=== PATIENT | female | born 1955 | race Caucasian/White ===

== ENCOUNTER 2018-01-12 14:11 | Outpatient (CLI) | payer OTHER ==
--- NOTE | 2018-01-16 15:10 | MMO ---
BILATERAL SCREENING MAMMOGRAM: History: 62-year-old female for screening mammography. Comparison: 06-21-13 FINDINGS: Bilateral MLO and CC views of the breasts shows scattered fibroglandular breast tissue. Benign appear ing calcifications are seen in both breasts. There is no evidence of suspicious mass, suspicious clus ter of microcalcifications or area of architectural distortion. This study is interpreted with the assistance of computer aided detection. IMPRESSION: BIRADS category 2 - benign findings. Annual screening mammography is recommended. POS: [facility]
== END 2018-01-12 14:12 | disposition home or self-care (01) ==
LOC: SCSMAMMO 14:11
PROVIDERS: ATTEND Specialist
DX: Z12.31 Encounter for screening mammogram for malignant neoplasm of breast (principal)
CPT/HCPCS: 77067

== ENCOUNTER 2018-05-15 16:08 | Inpatient (IN) | payer SELFPAY ==
[2018-05-15 16:37] VITALS: BMI 30.3
[2018-05-15] MEDS: cloNIDine 0.1 MG TAB PO SCH ×4 (17:57→22:38)
[2018-05-15 18:44] LABS: #Basophils 0.1 thou/uL (0.0-0.2); #Eosinphils 0.1 thou/uL (0.0-0.7); #Lymphocytes 3.5 thou/uL (1.20-3.40); #Monocytes 0.4 thou/uL (0.11-0.59); #Neutrophils 5.1 thou/uL (1.40-6.50); %Basophils 1.6 % (0.0-1.0); %Eosinophils 0.8 % (0.0-10.0); %Lymphocytes 37.7 % (21.0-51.0); %Monocytes 4.1 % (0.0-10.0); %Neutrophils 55.8 % (42.0-75.0); Hemoglobin 13.4 g/dL (12.0-16.0); Mean Corpuscular HGB CONC 32.9 g/dL (32.0-36.0); Mean Corpuscular Hemoglobin 33.5 pg (27.0-31.0); Mean Platelet Volume 6.6 fL (7.4-10.4); Platelet Count 386 thou/uL (130-400); RBC Distribution Width 11.7 % (11.5-14.5); White Blood Cell (WBC) Count 9.2 thou/uL (4.8-10.8)
[2018-05-15 19:07] LABS: ALT (SGPT) 10 U/L (8-55); AST (SGOT) 9 U/L (5-34); Albumin 4.1 g/dL (3.4-4.8); Alkaline Phosphatase 64 U/L (40-150); Anion Gap 12 mmol/L (10-20); BUN (Urea Nitrogen) 6 mg/dL (9.8-20.1); Bilirubin, Total 0.4 mg/dL (0.2-1.2); CRP (Inflammatory) Less than 0.50 mg/dL (= or < 0.5); Calc. Creatinine Clearance 109 mL/min (70-130); Calcium 10.4 mg/dL (7.8-10.44); Carbon Dioxide 24 mmol/L (23-31); Chloride 106 mmol/L (98-107); Estimated GFR-MDRD 83; Globulin 3.5 g/dL (2.4-3.5); Glucose 95 mg/dL (80-115); Potassium 3.4 mmol/L (3.5-5.1); Protein, Total 7.6 g/dL (6.0-8.3); Sodium 139 mmol/L (136-145)
[2018-05-15] MEDS: Nicotine 14 MG PATCH TOP SCH (20:29)
--- NOTE | 2018-05-15 21:12 | RAD ---
TWO VIEWS CHEST: 05/15/18 HISTORY: New onset atrial fibrillation. PA and lateral views of the chest demonstrate ectasia and calcification of the aorta. osteoporosis of the thoracic spine is seen. There is no evidence of acute intrathoracic abnormalities. Left mid lung and left lung base scarring is seen. IMPRESSION: Areas of left lung scar without evidence of acute intrathoracic abnormality seen. No evidence of effu sions seen. POS: [facility]
[2018-05-16] MEDS: cloNIDine 0.1 MG TAB PO SCH ×9 (01:27→19:47)
[2018-05-16 02:15] LABS: Bilirubin Negative (Negative); Blood, Urine Trace (Negative); Clarity CLOUDY (Clear); Glucose, Urine (Dipstick) Negative (Negative); Leukocyte Moderate (Negative); Nitrite Negative (Negative); Protein, Urine (Dipstick) Negative (Neg-Trace); Specific Gravity, Urine 1.021 (1.002-1.036); pH, Urine 6.5 (5.0-9.0)
[2018-05-16 02:19] LABS: Bacteria/HPF Rare-Few HPF (None Seen); Pathc Cast-AUWi Flag 2.03 (0-2.49); Squamous Epithelial 0-3 HPF (0-3); WBC/HPF 21-50 HPF (0-3)
[2018-05-16 03:04] LABS: Hyaline Casts/LPF 0-3 HYALINE CAST LPF (0-3 Hyaline)
--- NOTE | 2018-05-16 04:09 | HP ---
DATE ON ADMISSION: 05/15/2018 CHIEF COMPLAINT ON ADMISSION: Symptomatic cardiac arrhythmia. HISTORY OF PRESENT ILLNESS: The patient is a 62-year-old female who states for the last 3 weeks she has been getting increasingly dizzy, off balance, barely able to walk straight. At time, she has had double vision. She has felt like she was going to fall multiple times, but has not. She came to the office for evaluation today and it was noted that her heart was very irregular. EKG confirmed her sinus arrhythmia, consistent with supraventricular complexes. The patient has not seen a fairing worker multiple years. Denies current chest pain or shortness of breath at this time. No nausea or vomiting. Blood pressure has been very elevated as well over 200 systolic at times and then as time went by it gradually went down to 160/95. PAST MEDICAL HISTORY: Significant for chronic low back pain, generalized anxiety disorder, depression, vitamin D deficiency, history of ADD, history of gout, hyperlipidemia, tobacco abuse, osteoarthritis of her knees and spondylosis in her low back. PAST SURGICAL HISTORY: Left knee repair and cholecystectomy. She has had 2 vaginal births, unremarkable. FAMILY HISTORY: Not Helpful because she is adopted. SOCIAL HISTORY: She is , retired rn school. Drinks occasionally. Still continues to smoke and has had a [id number]-[id number] history of smoking. ALLERGIES: Sulfur, it makes her tongue to swell. ADMISSION MEDICATIONS: Rosuvastatin 20 mg daily, allopurinol 100 mg daily, vitamin D 10,000 IUs daily, gabapentin 600 mg t.i.d., Zoloft 100 mg b.i.d., Tylenol [id number]. REVIEW OF SYSTEMS: General: Significant for general weakness, unsteadiness. Denies fever or chills. HEENT: Denies headache. There has been some blurred vision. She denies discharge from ears, nose, or throat, no lesions there. Chest: Admits to some dyspnea, but no cough. Cardiac: Denies palpitations or chest pain. Abdomen: Denies nausea, vomiting, diarrhea, or pain. Genitourinary: Denies dysuria or blood in urine or stool. Extremities: Joint pain in her lower extremities, but no other muscular tenderness or pain. Skin: No new rashes or lesions. Neurologic: She is significant for anxiety. This chronic depression was under control, but denies any new paresthesias or areas of anesthesia. PHYSICAL EXAMINATION: VITAL SIGNS: On admission, temperature 97.9, pulse 86, respirations 18, O2 saturation 98% on room air, blood pressure 188/115, later elevated to 195/107. GENERAL: This is an anxious female, alert, oriented, cooperative. HEENT: Normocephalic and atraumatic. Pupils are equal, round, and reactive to light. Extraocular muscles are intact. TMs, nares, pharynx are clear. NECK: Supple, trachea midline. CHEST: Diminished breath sounds in the right middle lobe. HEART: Irregular rate, irregular rhythm. ABDOMEN: Soft without hepatosplenomegaly. GENITOURINARY/BREAST: Deferred. EXTREMITIES: Without clubbing, cyanosis, or edema. SKIN: Without acute rashes or lesions. NEUROLOGIC: Cranial nerves are intact. Gait and cerebellar function are significant for ataxia and unsteadiness. Sensory exam is grossly intact. Mental status significant for anxiety. SKIN: No new rashes or lesions. LABORATORY DATA: Lab work thus far shows WBC is 9.2, hemoglobin 13.4, hematocrit 40.7 with platelets of 386,000. Sed rate at 22. Sodium 139, potassium 3.4, chloride 106, CO2 of 24, BUN 6, creatinine 0.71 with a GFR 83, glucose 95. Liver functions normal. C-reactive protein less than 0.5. TSH 1.0224. IMAGING: Echocardiogram is pending. Chest x-ray shows no acute infiltrates or cardiomegaly. ASSESSMENT: 1. Symptomatic cardiac arrhythmia with ataxia. 2. Long history of tobacco abuse. 3. Multiple cardiac risk factors including hypertension poorly controlled and dyslipidemia. 4. Hypertension - uncontrolled. 5. Generalized anxiety disorder. PLAN: Will be to control the blood pressure, continue on telemetry, get an echocardiogram, a cardiac consult, and serially reevaluate her. I suspect that her hypertension is contributing to the arrhythmias. NAVIN
[2018-05-16 05:07] LABS: Cardiac Risk 3.4 (Less than 4.5)
[2018-05-16] MEDS: Gabapentin 300 MG CAP PO SCH (11:18)
[2018-05-16] MEDS ORDERED: cloNIDine 0.1 MG TAB PO SCH (12:30)
[2018-05-16] MEDS: cefTRIAXone\\ROCEPHIN 1 GM in Sodium Chloride 0.9% 100 ML IVPB SCH (13:09)
[2018-05-16] MEDS: Nicotine 14 MG PATCH TOP SCH (19:47)
[2018-05-17] MEDS: cloNIDine 0.1 MG TAB PO SCH (08:31)
[2018-05-17] MEDS: Gabapentin 300 MG CAP PO SCH (08:31)
[2018-05-17] MEDS: cefTRIAXone\\ROCEPHIN 1 GM in Sodium Chloride 0.9% 100 ML IVPB SCH (12:28)
[2018-05-17 15:55] VITALS: BP 133/89; TEMP 97.4
--- NOTE | 2018-05-17 19:21 | CON ---
DATE OF CONSULTATION: 05/17/2018 CARDIOLOGY CONSULTATION REASON FOR CONSULTATION: PACs. HISTORY OF PRESENT ILLNESS: Mrs. Phoenix is a very pleasant 62-year-old white female who comes to [facility] for dizziness. She has noted last 3 weeks she has increased dizziness and issue with urbano pinae, unable to walk in a straight line and double vision when she turns her head. She has fallen se veral times because of this. She went to see her primary care Dr. Sotelo who admitted her to the [facility] for further evaluation. EKG done in the office showed sinus rhythm with PACs. Cardiology is be ing consulted for evaluation of all this. She denies any chest pain, tightness, pressure, no shortne ss of breath. PAST MEDICAL HISTORY: 1. Chronic low back pain. 2. Generalized anxiety disorder. 3. Depression. 4. Vitamin D deficiency. 5. History of ADD. 6. Gout. 7. Hyperlipidemia. 8. Tobacco abuse. 9. Osteoarthritis of her knees. 10. Spondylosis of her low back. PAST SURGICAL HISTORY: 1. Left knee repair. 2. Cholecystectomy. FAMILY HISTORY: She is adopted. 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 Occasional alcohol use, smokes a pack a day 46 pack year sm oking history, continues to do so. OUTPATIENT MEDICATIONS: 1. Rosuvastatin 20 mg a day. 2. Allopurinol 100 mg a day. 3. Vitamin D. 4. Gabapentin. 5. Zoloft. 6. Tylenol over the counter p.r.n. ALLERGIES: SULFA makes her tongue well. REVIEW OF SYSTEMS: A 12-point review of systems was done and is all negative unless stated in the hi story of present illness. PHYSICAL EXAMINATION: VITAL SIGNS: Temperature 97.4, pulse 85, respiration rate 20, satting 94% on room air, blood pressur e 133/89. GENERAL: Awake, alert, oriented x3, in no distress. HEENT: Normocephalic. NECK: Supple. LUNGS: Clear. CARDIOVASCULAR: S1, S2, no S3, S4, no murmurs. ABDOMEN: Soft, positive bowel sounds. EXTREMITIES: No edema. SKIN: Warm and dry. LABORATORY WORK: Reviewed. CBC, chemistries are pretty much unremarkable. Her potassium was 3.4 wh ich is mildly reduced. TSH was normal. LDL 51, HDL of 33. UA showed trace blood, moderate leukocyt e esterase, 21-50 white cells. IMAGING DATA: Echocardiogram showed LV function normal at 60%-65%. Grade I/III diastolic dysfunctio n and obstruction, mild MR, TR, and a small pericardial effusion with no tamponade physiology. Chest x-ray was reviewed. Telemetry was reviewed. ASSESSMENT AND PLAN: 1. PACs: She had PACs on the regional EKG before admission. She has had rare PACs here during her monitoring. She is asymptomatic from the PACs. I do think that her dizziness and double vision came from her PACs. 2. Pericardial effusion. She will need to follow up with this. She is not in tamponade and the flu id is very minimal. She will need a followup echocardiogram in 2-4 weeks after discharge. 3. Dizziness: Currently not dizzy. Would want to rule out any cerebral issues. I do not see any c ardiac issues causing her to be dizzy at this time. She is not orthostatic. Thanks for allowing me to participate in the care of your patient. We will follow.
--- NOTE | 2018-05-19 10:30 | EKG ---
Test Reason : Blood Pressure : / mmHG Vent. Rate : 076 BPM Atrial Rate : 076 BPM P-R Int : 184 ms QRS Dur : 086 ms QT Int : 392 ms P-R-T Axes : 064 068 072 degrees QTc Int : 441 ms Normal sinus rhythm Normal ECG Confirmed by DR. Willian MENDOZA ([id number]) on 05/19/2018 10:29:23 AM Referred By: Alice GILES Confirmed By:DR. Willian MENDOZA
== END 2018-05-17 17:32 | disposition home or self-care (01) | DRG 309 ==
LOC: 2SE 16:08
PROVIDERS: ADMIT Specialist; ATTEND Specialist
DX: I49.9 Cardiac arrhythmia, unspecified (principal); I31.3 Pericardial effusion (noninflammatory); N39.0 Urinary tract infection, site not specified; G89.29 Other chronic pain; F32.9 Major depressive disorder, single episode, unspecified; E55.9 Vitamin D deficiency, unspecified; F98.8 Other specified behavioral and emotional disorders with onset usually occurring in childhood and adolescence; M10.9 Gout, unspecified; E78.5 Hyperlipidemia, unspecified; F17.210 Nicotine dependence, cigarettes, uncomplicated; M17.0 Bilateral primary osteoarthritis of knee; M47.9 Spondylosis, unspecified; R27.0 Ataxia, unspecified; I10 Essential (primary) hypertension; F41.1 Generalized anxiety disorder; I49.1 Atrial premature depolarization
CPT/HCPCS: 36415; 71046; 80053; 80061; 81001; 84443; 85025; 85652; 86140; 90471; 90732; 93005; 93010; 93306; G0009; J0696; J7050

== ENCOUNTER 2018-05-25 11:55 | Emergency (ER) | payer SELFPAY ==
--- NOTE | 2018-05-25 13:49 | RAD ---
RADIOGRAPH CHEST 1 VIEW: Date: 07/25/2017. Time: 1:35 p.m. HISTORY: A 62-year-old female with hypertension and generalized weakness. COMPARISON: 05/15/2018. FINDINGS: Again noted are the plate-like densities representing pulmonary scars at the left mid lung field and left base. There is a faint, ill-defined, approximately 1.5 cm nodular density overlying the right u pper lobe. No consolidation, pulmonary edema, or pneumothorax. Lateral costophrenic angles are bunny p. No major interval change. IMPRESSION: 1. right upper lobe pulmonary nodule. 2. Recommend chest CT for further evaluation. 3. No acute findings. JOHNNY [] POS: [facility]
[2018-05-25 13:52] LABS: #Basophils 0.1 thou/uL (0.0-0.2); #Eosinphils 0.1 thou/uL (0.0-0.7); #Lymphocytes 2.9 thou/uL (1.20-3.40); #Monocytes 0.8 thou/uL (0.11-0.59); #Neutrophils 4.4 thou/uL (1.40-6.50); %Basophils 1.3 % (0.0-1.0); %Eosinophils 1.5 % (0.0-10.0); %Lymphocytes 35.4 % (21.0-51.0); %Monocytes 9.2 % (0.0-10.0); %Neutrophils 52.6 % (42.0-75.0); Hemoglobin 13.5 g/dL (12.0-16.0); Mean Corpuscular HGB CONC 33.8 g/dL (32.0-36.0); Mean Corpuscular Hemoglobin 33.4 pg (27.0-31.0); Mean Platelet Volume 6.9 fL (7.4-10.4); Platelet Count 360 thou/uL (130-400); RBC Distribution Width 11.4 % (11.5-14.5); Red Blood Cell (RBC) Count 4.04 mill/uL (4.20-5.40); White Blood Cell (WBC) Count 8.3 thou/uL (4.8-10.8)
[2018-05-25 14:05] LABS: ALT (SGPT) 10 U/L (8-55); AST (SGOT) 10 U/L (5-34); Albumin 3.9 g/dL (3.4-4.8); Alkaline Phosphatase 69 U/L (40-150); Anion Gap 14 mmol/L (10-20); BUN (Urea Nitrogen) 4 mg/dL (9.8-20.1); Bilirubin, Total 0.4 mg/dL (0.2-1.2); Calc. Creatinine Clearance 0 mL/min (70-130); Carbon Dioxide 23 mmol/L (23-31); Chloride 108 mmol/L (98-107); Estimated GFR-MDRD 76; Globulin 3.6 g/dL (2.4-3.5); Glucose 100 mg/dL (80-115); Potassium 3.5 mmol/L (3.5-5.1); Protein, Total 7.5 g/dL (6.0-8.3); Sodium 141 mmol/L (136-145)
[2018-05-25 14:09] LABS: CKMB 0.5 ng/mL (0-6.6); Troponin I Less than 0.010 ng/mL (< 0.028)
== END 2018-05-25 15:49 | disposition home or self-care (01) ==
LOC: ERS 11:55
DX: R53.1 Weakness (principal); F17.210 Nicotine dependence, cigarettes, uncomplicated
CPT/HCPCS: 36415; 71045; 80053; 82553; 83880; 84484; 85025; 93005

== ENCOUNTER 2018-09-30 18:00 | Emergency (ER) | payer SELFPAY ==
[2018-09-30 18:34] LABS: #Basophils 0.1 thou/uL (0.0-0.2); #Eosinphils 0.1 thou/uL (0.0-0.7); #Lymphocytes 4.2 thou/uL (1.20-3.40); #Monocytes 0.7 thou/uL (0.11-0.59); #Neutrophils 6.8 thou/uL (1.40-6.50); %Basophils 0.9 % (0.0-1.0); %Eosinophils 0.4 % (0.0-10.0); %Lymphocytes 35.1 % (21.0-51.0); %Monocytes 6.1 % (0.0-10.0); %Neutrophils 57.6 % (42.0-75.0); Hemoglobin 14.2 g/dL (12.0-16.0); Mean Corpuscular HGB CONC 32.9 g/dL (32.0-36.0); Mean Corpuscular Hemoglobin 33.1 pg (27.0-31.0); Mean Platelet Volume 6.4 fL (7.4-10.4); Platelet Count 481 thou/uL (130-400); RBC Distribution Width 11.3 % (11.5-14.5); Red Blood Cell (RBC) Count 4.29 mill/uL (4.20-5.40); White Blood Cell (WBC) Count 11.8 thou/uL (4.8-10.8)
[2018-09-30] MEDS ORDERED: Ondansetron PF 4 MG/2 ML Vial ONE (18:41)
[2018-09-30 18:55] LABS: ALT (SGPT) 10 U/L (8-55); AST (SGOT) 12 U/L (5-34); Albumin 4.4 g/dL (3.4-4.8); Alkaline Phosphatase 74 U/L (40-150); Anion Gap 13 mmol/L (10-20); BUN (Urea Nitrogen) 9 mg/dL (9.8-20.1); Bilirubin, Total 0.6 mg/dL (0.2-1.2); Calc. Creatinine Clearance 0 mL/min (70-130); Calcium 10.8 mg/dL (7.8-10.44); Carbon Dioxide 23 mmol/L (23-31); Chloride 104 mmol/L (98-107); Estimated GFR-MDRD 52; Globulin 3.8 g/dL (2.4-3.5); Glucose 107 mg/dL (80-115); Lipase 93 U/L (8-78); Potassium 4.1 mmol/L (3.5-5.1); Protein, Total 8.2 g/dL (6.0-8.3); Sodium 136 mmol/L (136-145)
[2018-09-30 20:02] LABS: Bilirubin Negative (Negative); Blood, Urine Trace (Negative); Clarity CLOUDY (Clear); Glucose, Urine (Dipstick) Negative (Negative); Leukocyte Negative (Negative); Nitrite Negative (Negative); Protein, Urine (Dipstick) 100 mg/dL (Neg-Trace); Specific Gravity, Urine 1.008 (1.002-1.036); Urobilinogen 0.2 mg/dL (0.2-1.0)
[2018-09-30 20:03] LABS: Bacteria/HPF Rare-Few HPF (None Seen); Pathc Cast-AUWi Flag 1.22 (0-2.49)
[2018-09-30 20:04] LABS: Hyaline Casts/LPF 0-3 HYALINE CAST LPF (0-3 Hyaline); RBC/HPF 0-3 HPF (0-3)
== END 2018-09-30 20:52 | disposition home or self-care (01) ==
LOC: ERS 18:00
DX: K52.9 Noninfective gastroenteritis and colitis, unspecified (principal); I10 Essential (primary) hypertension; F41.9 Anxiety disorder, unspecified; F32.9 Major depressive disorder, single episode, unspecified; F17.210 Nicotine dependence, cigarettes, uncomplicated; Z79.899 Other long term (current) drug therapy; Z79.82 Long term (current) use of aspirin
CPT/HCPCS: 80053; 81003; 81015; 83690; 85025; 87086; 93005; 94760; 96361; 96372; 96374; J0500; J2405

== ENCOUNTER 2018-10-22 14:01 | Outpatient (CLI) | payer OTHER ==
--- NOTE | 2018-10-22 14:27 | RAD ---
Exam: Chest 2 views HISTORY:Cough and bronchitis Comparison: 05/25/2018 FINDINGS: Lungs: There is nodular density of the right upper to midlung zone. Interstitial prominence of each l liro is present Cardiac silhouette:Mild enlargement of cardiac silhouette. Marked prominence of the right paramediast inal region Pulmonary vessels: Mild engorgement Pleural Spaces: Clear Pneumothorax: None Osseous abnormalities: None of acuity. IMPRESSION: Marked prominence of size of the right paramediastinal region. Underlying mass is the steffen gnosis of exclusion. Nodular density adjacent this finding could relate to metastatic nodularity. Dedicated CT thorax with contrast is recommended.
== END 2018-10-22 14:02 | disposition home or self-care (01) ==
LOC: BICRAD 14:01
PROVIDERS: ATTEND Specialist
DX: J40 Bronchitis, not specified as acute or chronic (principal); J98.4 Other disorders of lung
CPT/HCPCS: 71046

== ENCOUNTER 2018-10-23 13:14 | Inpatient (IN) | payer SELFPAY ==
[~2018-10-23 13:14] MED LIST: Iopamidol 370 76% 100 ML VIAL ONE
[2018-10-23 13:47] LABS: #Basophils 0.1 thou/uL (0.0-0.2); #Lymphocytes 2.1 thou/uL (1.20-3.40); #Monocytes 0.7 thou/uL (0.11-0.59); #Neutrophils 10.9 thou/uL (1.40-6.50); %Basophils 0.8 % (0.0-1.0); %Eosinophils 0.1 % (0.0-10.0); %Monocytes 4.7 % (0.0-10.0); %Neutrophils 79.4 % (42.0-75.0); Hemoglobin 13.5 g/dL (12.0-16.0); Mean Corpuscular HGB CONC 31.7 g/dL (32.0-36.0); Mean Corpuscular Hemoglobin 31.7 pg (27.0-31.0); Mean Platelet Volume 6.2 fL (7.4-10.4); Platelet Count 351 thou/uL (130-400); RBC Distribution Width 12.5 % (11.5-14.5); Red Blood Cell (RBC) Count 4.27 mill/uL (4.20-5.40); White Blood Cell (WBC) Count 13.8 thou/uL (4.8-10.8)
[2018-10-23 14:15] LABS: ALT (SGPT) 7 U/L (8-55); AST (SGOT) 7 U/L (5-34); Albumin 4.2 g/dL (3.4-4.8); Alkaline Phosphatase 67 U/L (40-150); Anion Gap 14 mmol/L (10-20); BUN (Urea Nitrogen) 7 mg/dL (9.8-20.1); Bilirubin, Total 0.3 mg/dL (0.2-1.2); Calc. Creatinine Clearance 0 mL/min (70-130); Calcium 10.9 mg/dL (7.8-10.44); Carbon Dioxide 24 mmol/L (23-31); Chloride 107 mmol/L (98-107); Estimated GFR-MDRD 70; Globulin 3.6 g/dL (2.4-3.5); Glucose 110 mg/dL (80-115); Potassium 3.3 mmol/L (3.5-5.1); Protein, Total 7.8 g/dL (6.0-8.3); Sodium 142 mmol/L (136-145)
--- NOTE | 2018-10-23 15:24 | CT ---
EXAM: CT Chest W Con PROVIDED CLINICAL HISTORY: Shortness of breath and cough. COMPARISON: None FINDINGS: There is a large hypodense right mediastinal and paramediastinal mass measuring 7.5 cm craniocaudal x 8.7 cm AP x6.7 cm transverse. This mass does result in mass effect on the SVC with lobulated and irregular appearance of posterior aspect of the SVC, and direct invasion into the SVC is a possibilit y. This mass also extends into the subcarinal region. This mass results in either occlusion or very severe narrowing of the right internal jugular vein at the superior extent of the mass. There is an irregular pulmonary nodule seen within the right upper lobe adjacent to the large right m ediastinal/paramediastinal mass. This irregular nodule measures 2 cm x 1.5 cm. There is an additional tiny satellite nodule seen in this region as well. No additional pulmonary nodule or mass is seen in the lungs bilaterally. There is atelectasis present in the lung bases bilaterally as well as in the left upper lobe. No pleural effusion is seen. There is a small pericardial effusion identified. Vascular calcifications are seen in the thoracic aorta. Postsurgical changes related to cholecystectomy are noted. Remainder of the upper abdomen demonstrate s a normal CT appearance. Degenerative changes are seen spine. There is left convex scoliosis of the thoracolumbar spine. No ly tic or sclerotic osseous lesions are seen. IMPRESSION: 1. Large right mediastinal and paramediastinal mass worrisome for neoplastic process. This mass resul ts in probable occlusion of the right internal jugular vein and also results in narrowing and deformity of the SVC. Direct invasion into the posterior aspect of the SVC is a possibility, and ther e is moderate to severe narrowing of the SVC in this region. This mass abuts the right main stem bronchus as well as the guru and trachea but does not appear to invade the structures. 2. Right upper lobe irregular pulmonary nodule measuring 2 cm in maximal dimensions which is immediat samara adjacent to the right mediastinal/paramediastinal mass with an adjacent tiny satellite nodule seen. This is also worrisome for neoplastic process. 3. Pericardial effusion. 4. Postcholecystectomy changes.
[2018-10-23] MEDS ORDERED: methylPREDNISolone Sod Succ/PF 125 MG/2 ML VIAL ONE (15:52)
[2018-10-23] MEDS ORDERED: Water For Inject, Bacteriostat 30 ML ONE (15:53)
[2018-10-23 17:54] VITALS: BMI 28.8
[2018-10-23] MEDS ORDERED: NS 0.9% w/ 20 MEQ KCL 0 ML ONE (20:29)
[2018-10-23] MEDS ORDERED: NS 0.9% w/ 20 MEQ KCL 1,000 ML ONE (20:32)
[2018-10-23] MEDS ORDERED: Acetaminophen 325 MG TAB PO PRN (20:36)
[2018-10-23] MEDS ORDERED: Ondansetron PF 4 MG/2 ML Vial IVP PRN (20:36)
[2018-10-23] MEDS: 1/2 NS w/KCL 20 mEq 1,000 ML IV SCH (20:55)
[2018-10-23] MEDS: Lorazepam 1 MG TAB PO SCH (21:02)
[2018-10-23] MEDS: Temazepam 15 MG CAP PO SCH (21:02)
[2018-10-23] MEDS: cloNIDine 0.1 MG TAB PO SCH ×2 (21:02→21:08)
[2018-10-23] MEDS: methylPREDNISolone Sod Succ 40 MG VIAL IVP SCH (21:03)
--- NOTE | 2018-10-24 00:32 | CON ---
DATE OF CONSULTATION: HISTORY OF PRESENT ILLNESS: This is a 63-year-old female who has been having some upper respiratory symptoms for the past couple of weeks and been on 2 courses of antibiotics without significant improvement in her cough. She has had no fever. She fell against a baby crib about 2 weeks ago, bumping her right chest and was having some pain in her right submammary area and presented to the emergency room today where a CT scan showed a large right suprahilar mass, smaller right upper lobe mass adjacent to this with some compression of the superior vena cava. She had previously had a chest x-ray in May when she was hospitalized for PACs and was not evident at that time. She has a history of smoking most of her adult life 3/4 of a pack of cigarettes a day. She admits to about a 10-pound weight loss over the last month or 2. She was seen by Dr. Baca earlier this year for symptoms of leg weakness and was given a diagnosis of myasthenia gravis with negative blood work and begun on Mestinon 3 and then 4 times a day as well as steroids 10 mg a day, although she recently completed a course of 5 days of 40 mg for her upper respiratory symptoms and wheezing. She has had no significant improvement in her leg weakness on these drugs. PAST SURGICAL HISTORY: Negative. SOCIAL HISTORY: She is . As mentioned, smokes 3/4 of a pack of cigarettes today. PHYSICAL EXAMINATION: GENERAL: She is alert, cooperative lady, and in no distress. VITAL SIGNS: She has a recorded weight of 179, a height of 5 feet 6 inches. NECK: She has no obvious jugular venous distention. LUNGS: She does have prominent supraclavicular lungs on examination. She has bilateral expiratory wheezes with no rhonchi. CARDIAC: Mild resting tachycardia. No murmurs. ABDOMEN: Obese and nontender. I do not appreciate a liver fullness. EXTREMITIES: She has no peripheral edema. She does not have any clubbing, although her fingernails making this difficult to assess. She has no upper extremity swelling in her face. 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 PLAN: Plan on CME tomorrow for tissue diagnosis and I have discussed this with the patient and her including the risks including bleeding, infection. Options were discussed and she wishes to proceed in order to obtain tissue diagnosis. Job ID: [id number]
--- NOTE | 2018-10-24 02:59 | HP ---
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 HISTORY OF PRESENT ILLNESS: The patient is a 63-year-old female, who had been having worsening cough and shortness of breath for 3 weeks. She had been put on several antibiotics without success. A chest x-ray was performed in her workup which showed the suggestion of a mediastinal mass. At this point, as a CT was sought, and ultimately due to progressive cough, shortness of breath, and pain in her right rib when she takes a deep breath, she came to the emergency room at [facility]. There, a CT scan revealed a large mediastinal mass with invasion into the superior vena cava and occlusion of the right internal jugular vein. There was also noted a right upper lobe pulmonary nodule 2 cm in dimension, so there is much concern about a neoplastic process in play along with pericardial effusion. The patient is hospitalized for urgent surgical intervention for diagnosis and prevention of catastrophic invasion of the superior vena cava. PAST MEDICAL HISTORY: Significant for hypertension, recent diagnosis of myasthenia gravis, fibromyalgia, degenerative joint disease to the knees and back, history of erythema nodosum, general medical noncompliance, and long history of tobacco abuse. PAST SURGICAL HISTORY: Meniscal repair to the left knee, cholecystectomy. PSYCHIATRIC HISTORY: Significant for anxiety, depression with BIPOLAR DISORDER, manic episode precipitated by steroid use in the past. SOCIAL HISTORY: She is . Denies alcohol use or illicit drug use. Continues to smoke daily. ALLERGIES: TO SULFA AND SULFONAMIDES. CURRENT MEDICATIONS: She cannot recall nor is compliant with her hypertension and myasthenia medications. REVIEW OF SYSTEMS: At the time of admission, CONSTITUTIONAL: She denies fever, but admits to chronic fatigue and weakness. HEENT: Has had an episode of double vision, but it has cleared. Denies any sores in her eyes and ears, but has had rhinorrhea. CARDIOVASCULAR: Denies palpitations, but has had significant right-sided rib pain ever since she leaned over counter and cracked a rib approximately 3 weeks ago. RESPIRATORY: Significant for chronic cough and shortness of breath. GI: Denies nausea, vomiting, or diarrhea. : Denies painful urination or blood in urine or stool. MUSCULOSKELETAL: Has significant right-sided rib pain, knee pain, back pain. SKIN: No new rashes or lesions. HEMOLYTIC/LYMPH: Denies any bruising, edema, erythema. NEUROLOGIC: Denies headache, dizziness, or blurred vision at this time. No hypoesthesia or areas of anesthesia. PHYSICAL EXAMINATION: VITAL SIGNS: At the time of admission, blood pressure 180/104, pulse 95, respirations 20, and temperature 98. Pain scale 8/10. O2 saturation 96% on room air. GENERAL: This is a well-developed, well-nourished, female, alert, oriented, and cooperative. HEENT: Normocephalic and atraumatic. Pupils are equal, round, and reactive to light. Extraocular muscles are intact. TMs clear. Nares are clear. Postnasal drip. Pharynx clear. NECK: Supple. Trachea midline. CHEST: Clear to auscultation. HEART: Regular rate and rhythm. BREASTS: Deferred. ABDOMEN: Soft and nontender without organomegaly. : Deferred. EXTREMITIES: Without clubbing, cyanosis, or edema. Normal range of motion present. SKIN: Without acute rashes or lesions. NEUROLOGIC: Cranial nerves are intact. Gait and cerebral function intact. Sensory exam is grossly intact. Mental status is nonfocal and intact. LABORATORY DATA AND DIAGNOSTIC STUDIES: Lab work thus far shows WBCs 13.8, hemoglobin 13.5, hematocrit 42.8, and platelets are 351. Sodium 142, potassium 3.3, chloride 107, CO2 of 24, BUN 7, creatinine 0.82, glucose 110, calcium slightly elevated at 10.9. Liver functions unremarkable. BNP at 42. CT as previously mentioned of the chest shows, 1. Large right mediastinal and paramediastinal mass, worrisome for neoplastic process, occluding the right internal jugular, resulting in narrowing and deformity of superior vena cava, direct invasion of the posterior aspect of the superior vena cava is a possibility, and there is [id number] narrowing of the superior vena cava. It abuts the right mainstem bronchus and the guru and trachea, but does not appear to invade the structures. 2. Right upper lobe pulmonary nodule measuring 2 cm, worrisome for mediastinal and paramediastinal mass. 3. Pericardial effusion. 4. Post cholecystectomy changes noted. ASSESSMENT: 1. Superior vena cava syndrome. 2. Mediastinal mass. 3. Pulmonary mass. 4. Tobacco withdrawal. 5. Hypertension. 6. History of general medical noncompliance. PLAN: Will be cardiovascular surgical consultation. Supportive care. Nicotine patch and blood pressure management. Job ID: [id number]
[2018-10-24 04:45] LABS: #Basophils 0.1 thou/uL (0.0-0.2); #Lymphocytes 1.4 thou/uL (1.20-3.40); #Monocytes 0.1 thou/uL (0.11-0.59); #Neutrophils 7.8 thou/uL (1.40-6.50); %Basophils 0.9 % (0.0-1.0); %Eosinophils 0.1 % (0.0-10.0); %Lymphocytes 14.8 % (21.0-51.0); %Neutrophils 83.2 % (42.0-75.0); Hemoglobin 13.4 g/dL (12.0-16.0); Mean Corpuscular HGB CONC 33.3 g/dL (32.0-36.0); Mean Corpuscular Hemoglobin 33.6 pg (27.0-31.0); Mean Platelet Volume 6.8 fL (7.4-10.4); Platelet Count 356 thou/uL (130-400); RBC Distribution Width 11.6 % (11.5-14.5); Red Blood Cell (RBC) Count 3.99 mill/uL (4.20-5.40); White Blood Cell (WBC) Count 9.4 thou/uL (4.8-10.8)
[2018-10-24 05:06] LABS: Anion Gap 13 mmol/L (10-20); BUN (Urea Nitrogen) 10 mg/dL (9.8-20.1); Calc. Creatinine Clearance 97 mL/min (70-130); Calcium 10.7 mg/dL (7.8-10.44); Carbon Dioxide 28 mmol/L (23-31); Chloride 104 mmol/L (98-107); Estimated GFR-MDRD 78; Glucose 124 mg/dL (80-115); Potassium 3.9 mmol/L (3.5-5.1); Sodium 141 mmol/L (136-145)
[2018-10-24] MEDS: 1/2 NS w/KCL 20 mEq 1,000 ML IV SCH ×2 (06:33→16:51)
[2018-10-24] MEDS: methylPREDNISolone Sod Succ 40 MG VIAL IVP SCH ×3 (06:33→21:39)
[2018-10-24] MEDS ORDERED: Bupivacaine HCl 0.5%/Epinephrine 1:200,000/PF 30 ml Vial ONE (08:09)
[2018-10-24] MEDS ORDERED: Promethazine HCl 25 MG/ML VIAL SLOW IVP PRN (08:27)
[2018-10-24] MEDS ORDERED: Ondansetron HCl/PF 4 MG/2 ML Vial IVP PRN (08:27)
[2018-10-24] MEDS ORDERED: Promethazine HCl 25 MG/ML VIAL IM PRN (08:27)
[2018-10-24] MEDS ORDERED: Fentanyl 100 MCG/2 ML VIAL ONE ×2 (08:30→10:16)
[2018-10-24] MEDS ORDERED: Atracurium 100 MG/10 ML VIAL ONE (08:32)
[2018-10-24] MEDS ORDERED: CEFAZOLIN 1 GM VIAL ONE (08:39)
[2018-10-24] MEDS ORDERED: Sodium Chloride 0.9% 100 ML ONE (08:39)
[2018-10-24] MEDS ORDERED: Gadobenate Dimeglumine 529 MG/1 ML (20ML VIAL) ONE (11:08)
--- NOTE | 2018-10-24 11:54 | OP ---
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 PROCEDURE PERFORMED: Cervical mediastinal exploration with biopsies. ANESTHESIA: General. ESTIMATED BLOOD LOSS: Less than 10 mL. DESCRIPTION OF PROCEDURE: After adequate anesthesia had been obtained, roll placed behind the shoulders and a pulse oximeter on the right index finger. The patient had a small incision made in the suprasternal notch, carried down through the subcutaneous tissue. Enlarged veins were encountered and these were individually ligated and divided. After the trachea had been exposed, a blunt dissection was carried into the mediastinum and the scope inserted. Tracked down past the innominate artery and then, the mass restricted further access down the trachea was densely adherent. Avoiding any further vascular structures on the surface of the tumor. Multiple biopsies were obtained with the tumor primarily being necrotic in nature. Following this, hemostasis was observed to be present and the scope was gradually removed and no bleeding occurred. Subcutaneous tissue was then closed as well as the skin and the patient is to be taken to the recovery room in guarded condition. Job ID: [id number]
[2018-10-24] MEDS ORDERED: Fentanyl 100 MCG/2 ML VIAL SLOW IVP PRN (12:07)
[2018-10-24] MEDS ORDERED: traMADol HCl 50 MG TAB PO PRN (12:07)
[2018-10-24] MEDS ORDERED: cloNIDine 0.1 MG TAB PO PRN (12:23)
[2018-10-24] MEDS: Lorazepam 1 MG TAB PO SCH ×2 (12:53→20:09)
[2018-10-24] MEDS: cloNIDine 0.1 MG TAB PO SCH (12:53)
--- NOTE | 2018-10-24 13:31 | CON ---
DATE OF CONSULTATION: REASON FOR CONSULT: Lung mass. HISTORY OF PRESENT ILLNESS: Ms. Phoenix is a 63-year-old female, who has had a cough for several weeks with no improvement in antibiotics. She had a recent fall and hit her right chest. She was having pain, so presented to the emergency room. A CT scan showed a large right mediastinal and paramediastinal mass measuring 7.5 x 8.7 x 6.7 cm. There was a mass effect on the SVC with lobulated and in irregular appearance of the posterior aspect of the SVC. It extended into the subcarinal region and it is causing occlusion or narrowing of the right internal jugular vein. There was an irregular pulmonary nodule in the right upper lobe adjacent to the mediastinal mass measuring 2 cm x 1.5 cm. There was an additional satellite nodule noted as well. Showed a small pericardial effusion. Dr. Murillo was consulted and performed a mediastinoscopy this morning. The patient has a long history of smoking approximately 45 pack year. She has had greater than 10-pound weight loss in the last several weeks. She has also had leg weakness and was recently diagnosed with myasthenia gravis by Dr. Baca. The patient was seen in the recovery room and denied any complaints at this time. PAST MEDICAL HISTORY: 1. Hypertension. 2. Fibromyalgia. 3. Degenerative joint disease. 4. Erythema nodosum. 5. Recent diagnosis of myasthenia gravis. 6. Tobacco use. 7. Anxiety and depression. 8. Bipolar disorder. PAST SURGICAL HISTORY: 1. Left knee repair. 2. Cholecystectomy. ALLERGIES: SULFA. HOME MEDICATIONS: 1. Budesonide/formoterol inhaler b.i.d. 2. CBD extract daily. 3. Bentyl q.i.d. p.r.n. 4. Neurontin 600 mg t.i.d. 5. Prinivil 10 mg b.i.d. 6. Pravachol 40 mg daily. 7. Prednisone 10 mg daily. 8. Mestinon 60 mg q.6 hours. 9. Aspirin 81 mg daily. 10. Clonidine 0.1 mg b.i.d. 11. Zoloft 100 mg daily. SOCIAL HISTORY: , lives with her spouse. No alcohol or illicit drug use. REVIEW OF SYSTEMS: Negative except for noted in HPI. PHYSICAL EXAMINATION: VITAL SIGNS: Temperature is 98.0, pulse is 114, respiratory rate 28, and BP is 156/104. She is 97% on room air. GENERAL: Well-developed, well-nourished female, in no acute distress. HEENT: Normocephalic and atraumatic. Pupils are equal and reactive to light. NECK: Supple. She has a dressing in her sternal area. CVS: Regular rate and rhythm. LUNGS: She has expiratory wheezing throughout. ABDOMEN: Soft and nontender. Bowel sounds are positive. EXTREMITIES: No clubbing, cyanosis, or edema. SKIN: No rash. HEMATOLOGIC: No petechiae or purpura. NEUROLOGIC: Nonfocal. PERTINENT LABS AND X-RAYS: Current WBCs are 9.4, hemoglobin 13.4, hematocrit 40.2, platelet count is 356,000, 83% neutrophils, and 15% lymphocytes. Sodium is 141, potassium is 3.9, chloride is 104, CO2 is 28, BUN is 10, creatinine is 0.75, calcium is 10.7, bilirubin is 0.3, AST is 7, ALT is 7, and alkaline phosphatase is 67. BNP is 42.1. Serum total protein 7.8, albumin 4.2, and globulin 3.6. Radiology per HPI. ASSESSMENT: 1. Large mass in the mediastinum suggestive of small cell carcinoma. 2. Mediastinoscopy for tissue biopsy. 3. Long history of smoking. 4. Superior vena cava syndrome. DISCUSSION: The patient's tissue has been sent to Pathology for analysis. Her presentation is consistent with small cell carcinoma. She will get a brain MRI and CT of her abdomen for further staging. If this is a small cell carcinoma, she will be treated in the inpatient setting due to her SVC syndrome. Dr. Telles will be consulted for his opinion. Thank you for the consult. We will follow her hospital course closely. Job ID: [id number] [facility]
[2018-10-24] MEDS: Nicotine 14 MG PATCH TOP SCH (13:36)
[2018-10-24] MEDS ORDERED: Lorazepam 2 MG/ML VIAL ONE (15:07)
[2018-10-24] MEDS ORDERED: PROPOFOL 200 MG/20 ML VIAL ONE (15:12)
[2018-10-24] MEDS ORDERED: Lidocaine 1% PF 5 ML VIAL ONE (15:12)
[2018-10-24] MEDS ORDERED: PHENYLEPHRINE-NS 100 MCG/ML 10 ML SYRINGE ONE (15:12)
--- NOTE | 2018-10-24 15:52 | MRI ---
MRI BRAIN WITH AND WITHOUT CONTRAST: HISTORY: Mass in the mediastinum, adjacent to the superior vena cava, which was biopsied today. Shortness of breath. Rib pain. SVC syndrome. COMPARISON: CT chest from 10/23/2018. TECHNIQUE: Multiplanar, multisequence MR images were obtained of the brain with and without IV contrast. FINDINGS: There are two scattered foci of high FLAIR signal in the subcortical and periventricular white matter , likely secondary to small vessel ischemic disease. No restricted diffusion is seen to suggest an a cute infarction. No abnormal enhancement is seen to suggest intracranial metastatic disease. There is no evidence of hydrocephalus, intracranial hemorrhage, or extraaxial fluid collection. The expected flow voids are present. The corpus callosum, pituitary, and craniocervical junction are unr emarkable. The calvarium and overlying soft tissues are unremarkable. There is mild mucosal thickening in the e thmoid air cells. IMPRESSION: Small vessel ischemic disease without acute intracranial abnormality. POS: TPC
[2018-10-24] MEDS ORDERED: Clopidogrel Bisulfate 75 MG TAB PO SCH (16:15)
[2018-10-24] MEDS ORDERED: Lorazepam 2 MG/ML VIAL SLOW IVP SCH (16:15)
[2018-10-24] MEDS: Lisinopril 10 MG TAB PO SCH (20:09)
[2018-10-24] MEDS: Temazepam 15 MG CAP PO SCH (20:09)
[2018-10-24] MEDS ORDERED: Lorazepam 1 MG TAB PO PRN (20:48)
[2018-10-24] MEDS ORDERED: Mometasone/Formoterol 120 PUFF INHALER INH SCH (21:00)
--- NOTE | 2018-10-25 00:17 | CON ---
DATE OF CONSULTATION: HISTORY OF PRESENT ILLNESS: Ms. Phoenix is a 63-year-old female, is identified as having a mediastinal mass. She underwent mediastinoscopy this morning. Most of the history is obtained from her and she was awakened up from surgery. He reports that for several weeks, she has been dealing with a cough. She has also had gait instability and intermittent diplopia. She says when she wakes up in the morning, her head has been very swollen and her voice is different, but once she is up for a while, this improves a little bit. She has also had weight loss. She has had some leg weakness as well. She was recently told she had myasthenia gravis and started on Mestinon 3 times a day, then increased to 4 times a day. She initially felt like it was helping her and then said whenever she would take it, it would make her very sick. Prednisone was added. She subsequently has been admitted for workup of her abnormal chest CT. PAST MEDICAL HISTORY: Otherwise, unremarkable. SOCIAL HISTORY: She is a smoker, not a drinker. She does not use drugs. ALLERGIES: SHE REPORTS SULFA ALLERGY. FAMILY HISTORY: Negative for lung disease in early age. REVIEW OF SYSTEMS: Ten-point review of systems otherwise negative. PHYSICAL EXAMINATION: VITAL SIGNS: She is afebrile. Heart rate is 114, blood pressure 133/98, respiratory rate is 20, oximetry is 93% on room air. HEENT: Pupils are equal. Extraocular movements are intact. Her pupils react. She does not have ptosis. She had no diplopia reported while I was doing extraocular movements. Her throat is clear. NECK: Supple. LUNGS: Clear. HEART: Regular rhythm. S1 and S2 are normal. ABDOMEN: Soft and nontender. EXTREMITIES: Without clubbing, cyanosis, or edema. LABORATORY DATA: White count 9.4, hemoglobin 13.4, and platelets 356. Sodium 141, potassium 3.9, chloride 104, bicarb 28, BUN 10, creatinine 0.75, glucose 124, and calcium is 10.7. IMPRESSION: Mediastinal mass, status post mediastinoscopy. Per Dr. Murillo's note, did not have a clear-cut diagnosis from what I can tell. The thought that he was told that the preliminary might be small cell. I have contacted Pathology Department to see if we can expedite getting a pathological diagnosis. If it is small cell chemotherapy treatment can be started given that she has superior vena cava syndrome. I have ordered an MRI of her head since she has had multiple vague neurological complaints. This is done this afternoon with and without contrast, showing no evidence of metastatic disease fortunately. A bone scan will be ordered as well. Hopefully, we will find something that is amenable to treatment. I met with the and daughter and answered all their questions. TIME SPENT: This was a 70-minute consult, 50% of the time spent on the unit coordinating care. Job ID: [id number] MTDD
--- NOTE | 2018-10-25 00:53 | CON ---
DATE OF CONSULTATION: 10/24/2018 REASON FOR CONSULTATION: Ms. Phoenix is a 63-year-old female who has been diagnosed with an early superior vena cava syndrome from mediastinal mass. I was asked to see her and discuss her options with radiation therapy. HISTORY OF PRESENT ILLNESS: Ms. Phoenix states that she has been having some difficulties and was diagnosed with myasthenia gravis. The medicines initially helped some, but then were not helping. For the past three weeks, she has had some congestions, for which an antibiotic did not help. She has also had some chest pain, shortness of breath and cough. This led to a chest x-ray, which suggested a mediastinal mass. She subsequently went to the emergency room in [place], where she had a CT scan of the chest, which showed a large mediastinal mass, which was compressing the superior vena cava. There was an adjacent small right upper lobe lung mass measuring 2 cm. There was a small pericardial effusion. She was subsequently admitted for workup and evaluation. She does reports some intermittent facial swelling for the past several weeks also. Earlier today, she underwent a mediastinoscopy with biopsy of the mediastinal mass. Pathology from that is currently pending. She has been seen by Daniela Keane in Medical Oncology. I am seeing her today also to discuss her options for treatment. She does report a weight loss of 10-15 pounds with decreased appetite. She can lie flat, but does have some problems because of the congestion. She did have a headache last night, but is not having headaches at the present time. She voices no other complaints. PAST MEDICAL HISTORY: 1. Hypertension. 2. Possible myasthenia gravis. 3. Fibromyalgia. 4. Bipolar disorder. 5. Status post meniscal repair to the left knee. 6. Status post cholecystectomy. MEDICATIONS: 1. DuoNeb inhalers. 2. Catapres. 3. Plavix. 4. Fentanyl p.r.n. 5. Lisinopril. 6. Ativan. 7. Solu-Medrol. 8. Nicotine patch. 9. Zofran p.r.n. ALLERGIES: SULFA DRUGS WHICH CAUSE SWELLING OF THE TONGUE. SOCIAL HISTORY: She is and lives with her here in town. She has no alcohol use. She smokes about 3/4 pack per day. FAMILY HISTORY: Not completely known as the patient is adopted. She had done some research and has not found evidence of cancer in her family. REVIEW OF SYSTEMS: A 12-point review of systems is otherwise negative. PHYSICAL EXAMINATION: VITAL SIGNS: Her height 5 feet 6 inches, weight 179 pounds. Blood pressure is 133/98, pulse is 116, respirations are 20, temperature 99, O2 saturation is 92% on room air. GENERAL: She is alert and oriented and in no apparent distress. Karnofsky performance status is 80%. EYES: Pupils equal, round, and reactive to light. Extraocular movements are intact. ENT: Oral cavity and oropharynx, normal without lesion or erythema. Palate elevates symmetrically. Gingiva is intact. I do not see any evidence of facial swelling. NECK: Supple without preauricular, submandibular, cervical, or supraclavicular adenopathy. I do not see any jugular venous distention. No thyromegaly. Larynx midline. LUNGS: Breathing nonlabored. There are coarse breath sounds, especially in the bases and scattered wheezes. HEART: Regular rate and rhythm without murmur. No lower extremity edema. BACK: No tenderness on fist percussion of her spine. LYMPHATIC: No axillary inguinal adenopathy. ABDOMEN: Bowel sounds present. Soft, nontender, nondistended without mass or hepatosplenomegaly. Liver percusses normal size. SKIN: Without rash or purpura. NEUROLOGIC: Cranial nerves 2-12 grossly intact. Motor strength is 5/5 in both upper and lower extremities in all muscle groups tested. Reflexes are normal and symmetrical. Gait was not tested. RADIOLOGIC STUDIES: CT scan of the chest was personally reviewed. Again, she has a mass in the mediastinum that measures about 7.5 x 8.7 cm. The mass does cause mass effect on the superior vena cava and some compression of the right internal jugular vein. There is an adjacent 2 cm pulmonary nodule in the right upper lobe of the lung. There was a small pericardial effusion. There is no definite evidence of metastatic disease to the liver. MRI of the brain was personally reviewed and showed no evidence of brain metastasis. LABORATORY DATA: Pathology is currently pending. CBC today revealed a white blood cell count of 9400 with a hemoglobin of 13.4, hematocrit of 40.2, platelet count of 356,000. Chemistry group showed normal electrolytes. ASSESSMENT: Ms. Phoenix is a 63-year-old female with likely a lung carcinoma. This could either be non-small cell cancer of the lung or small cell cancer of the lung. She has early superior vena cava syndrome. This would be a clinical stage IIIA, T1 N2 M0 situation based on the current imaging that we have. She still has a bone scan which is pending. PLAN: I agree with completing the metastatic workup with a bone scan. We do need to obtain the final pathology. If this is small cell carcinoma of the lung, then we would likely start with chemotherapy fairly soon. If this is non-small cell carcinoma of the lung, then we would likely initiate radiation therapy fairly setting. Likely she is going to be treated with a combination of chemotherapy and radiation. The logistics of radiation as well as the benefits and risks of treatment were discussed. The simulation and daily treatment procedure were discussed. Side effects would include, but not be limited to, skin reaction, fatigue, lower blood counts, difficulty or pain with swallowing, weight loss, small risk of radiation pneumonitis, and small risk of damage to any other structure which receives radiation therapy. Time was taken to answer all the questions at this time. Presently, she is not in distress and appears fairly stable. I think we can wait to get the pathology before making a treatment decision. Hopefully, we will have the pathology back tomorrow. I will continue to follow the case with you. Another complicating factor is that she has no health insurance. We will get health and social care teacher and financial services involved in the situation also. Thank you for this interesting consultation. Job ID: [id number] MTDAngel
[2018-10-25] MEDS: 1/2 NS w/KCL 20 mEq 1,000 ML IV SCH ×3 (01:39→21:28)
[2018-10-25] MEDS: methylPREDNISolone Sod Succ 40 MG VIAL IVP SCH ×3 (06:19→21:27)
[2018-10-25] MEDS: Mometasone/Formoterol 120 PUFF INHALER INH SCH ×2 (08:22→19:23)
[2018-10-25] MEDS: Clopidogrel Bisulfate 75 MG TAB PO SCH (09:01)
[2018-10-25] MEDS: Lisinopril 10 MG TAB PO SCH ×2 (09:01→21:25)
[2018-10-25] MEDS: Nicotine 14 MG PATCH TOP SCH (09:02)
[2018-10-25] MEDS: Lorazepam 1 MG TAB PO SCH ×2 (09:48→21:26)
[2018-10-25] MEDS ORDERED: Zoledronic Acid 4 MG in Sodium Chloride 0.9% 100 ML IVPB SCH (10:00)
[2018-10-25] MEDS ORDERED: Iopamidol 370 76% 100 ML VIAL ONE (11:13)
--- NOTE | 2018-10-25 11:56 | CT ---
CT OF THE ABDOMEN AND PELVIS WITH IV CONTRAST INDICATION: History of lung mass concerning for metastatic disease COMPARISON: CT of the thorax dated October 23, 2018 FINDINGS: ABDOMEN: Lung bases: There is bibasilar atelectasis Liver: There is focal fatty infiltration of the falciform ligament. Gallbladder: Surgically absent Pancreas: Normal. Adrenal glands: Normal. Spleen: Normal. Kidneys: Normal. Retroperitoneum of the upper abdomen: There is moderate calcification involving the abdominal pelvic vasculature. Pelvis: Small and large bowel: There are scattered colonic diverticula. The small bowel is of normal caliber. There is a normal appendix in the right lower quadrant of the abdomen. Rectal and perirectal soft tissues:Normal. Reproductive structures: Normal. Free fluid in pelvis: No free fluid is evident. Lymphadenopathy pelvis: No lymphadenopathy is evident. Vascular structures: There is moderate scattered atherosclerotic calcification. Osseous structures: No acute osseous abnormality. No destructive osteolytic or osteoblastic lesion i s identified. There is scattered degenerative and osteoarthritic changes. There is levoscoliosis of the lumbar spine centered at L1-2. There is diffuse osteopenia. IMPRESSION: 1. No evidence of metastatic disease within the abdomen or pelvis. 2. Focal fatty infiltration of the liver near the falciform ligament. 3. Moderate vascular calcification of abdominal pelvic vasculature. 4. Colonic diverticulosis
--- NOTE | 2018-10-25 12:56 | NM ---
NM Bone Scan STANDARD HISTORY: Right hip pain, fall COMPARISON: None. RADIOPHARMACEUTICAL: 29 mCi technetium 99m-MDP injected intravenously FINDINGS: There is focally increased uptake in the anterior aspect of the right sixth rib consistent with recent trauma. Increased uptake in the shoulders consistent with degenerative changes. No other abnormal areas of tr acer localization is seen in the skeleton to suggest metastatic disease. Tracer excretion through the kidneys is within normal limits. IMPRESSION: Solitary focus of increased uptake in the right anterior rib consistent with recent traum a.
--- NOTE | 2018-10-25 14:04 | PRG ---
DATE OF SERVICE: 10/25/2018 SUBJECTIVE: Kp Phoenix is much more alert today. Fortunately, her MRI of her brain was unremarkable yesterday. She has mild resting tachycardia. OBJECTIVE: VITAL SIGNS: Blood pressure 143/104 and respiratory rate 16. LUNGS: Unchanged. HEART: Unchanged. ABDOMEN: Unchanged. LABORATORY DATA: There is no new lab today. Probably need to repeat a calcium at some point. Pathology is still pending. I called during the lunch hour and they are anticipating, we will have pathology results after 3 p.m. I will relay this to the oncologist and radiation oncologist when this becomes available. She is scheduled to have a bone scan today. This has already been done. She had 1 rib lesion. Given isolated nature of this and the recent fall, this may be simply related to that fall and not metastatic disease. She had an abdomen and pelvis CT done today with contrast that showed diverticulosis only. Vascular calcifications were seen. Hopefully, this is a malignancy that is confined to her chest. By imaging studies, this appears to be at this time. We will continue forward and hopefully start either radiation if it is non-small cell lung cancer with chemo. If it is small cell, to address her superior vena cava syndrome. Job ID: [id number]
--- NOTE | 2018-10-25 19:08 | PRG ---
DATE OF SERVICE: 10/25/2018 SUBJECTIVE: Visited with Ms. Phoenix today. She is having some shortness of breath, but does not feel that she is having as many issues as she had yesterday evening. Her breathing has been good today. It was a little worse after having to lie flat for her CAT scans and her bone scan, and she has not also had nebulizer treatment recently. For the most part, she feels that her breathing is the same or better than when she came into the hospital. She has no new symptoms or problems. OBJECTIVE: VITAL SIGNS: Height 5 feet 6 inches, weight 179 pounds. Blood pressure is 134/97, pulse is 107, respirations are 22, temperature is 97.2, her O2 saturation is 99% on room air. GENERAL: She is alert and oriented, and in no apparent distress. Her breathing is not labored at this time. Remainder of physical exam is not performed. DIAGNOSTIC DATA: CT scan of the abdomen and pelvis and bone scan were all personally reviewed. There was no evidence of distant metastatic disease. Laboratory pathology showed small-cell carcinoma of the lung. ASSESSMENT: Ms. Phoenix is a 63-year-old female, who appears to have a limited stage, clinical stage IIIA, T1N2M0 small-cell carcinoma of the lung. PLAN: I had a discussion with Ms. Phoenix and her regarding her diagnosis, prognosis, prognostic factors, and treatment options. She does appear to have limited stage disease. Small-cell carcinoma is fairly responsive to therapy. She does have early superior vena cava syndrome, but is clinically stable. I have discussed the case with Medical Oncology team. They will be initiating chemotherapy in the near future. She should respond rapidly to the chemotherapy and not require any emergent radiation. We will follow her with you and should she began experiencing more respiratory distress, we can consider whether we need to emergently add radiation therapy. I did explain to the patient and her that the typical treatment for limited stage small-cell carcinoma of the lung is concurrent chemotherapy and radiation. My preference would be that the radiation began with the second cycle of chemotherapy. This will likely be done as an outpatient. We will continue to monitor her with you as the chemotherapy is initiated. Time was taken to answer all their questions regarding prognosis and possible treatment options from radiation perspective. She will visit with Medical Oncology about chemotherapy options. Job ID: [id number]
[2018-10-25] MEDS: Temazepam 15 MG CAP PO SCH (21:25)
[2018-10-25] MEDS: Pravastatin Sodium 40 MG TAB PO SCH (21:25)
[2018-10-25] MEDS: Acetaminophen 325 MG TAB PO SCH (21:25)
[2018-10-25] MEDS: Gabapentin 300 MG CAP PO SCH (21:26)
[2018-10-26] MEDS: methylPREDNISolone Sod Succ 40 MG VIAL IVP SCH ×3 (05:33→21:37)
[2018-10-26 06:56] LABS: Hemoglobin 13.5 g/dL (12.0-16.0); Mean Corpuscular HGB CONC 32.9 g/dL (32.0-36.0); Mean Corpuscular Hemoglobin 33.5 pg (27.0-31.0); Platelet Count 361 thou/uL (130-400); RBC Distribution Width 11.7 % (11.5-14.5); Red Blood Cell (RBC) Count 4.03 mill/uL (4.20-5.40); White Blood Cell (WBC) Count 11.8 thou/uL (4.8-10.8)
[2018-10-26 07:21] LABS: ALT (SGPT) 9 U/L (8-55); AST (SGOT) 11 U/L (5-34); Albumin 3.9 g/dL (3.4-4.8); Alkaline Phosphatase 55 U/L (40-150); Anion Gap 13 mmol/L (10-20); BUN (Urea Nitrogen) 11 mg/dL (9.8-20.1); Bilirubin, Total 0.5 mg/dL (0.2-1.2); Calc. Creatinine Clearance 101 mL/min (70-130); Calcium 10.5 mg/dL (7.8-10.44); Carbon Dioxide 24 mmol/L (23-31); Chloride 106 mmol/L (98-107); Estimated GFR-MDRD 82; Globulin 3.3 g/dL (2.4-3.5); Glucose 120 mg/dL (80-115); Protein, Total 7.2 g/dL (6.0-8.3); Sodium 139 mmol/L (136-145)
[2018-10-26] MEDS: Mometasone/Formoterol 120 PUFF INHALER INH SCH ×2 (08:08→20:10)
[2018-10-26 08:40] LABS: Band 2 % (5-11); Lymphocytes 5 % (21-51); MDiff Complete? YES; Monocytes 4 % (0-10); Neutrophil 87 % (42-75); RBC Morphology Normal; Reactive Lymphocytes 2 % (0-10)
[2018-10-26] MEDS ORDERED: Fentanyl 100 MCG/2 ML VIAL SLOW IVP PRN (09:12)
[2018-10-26] MEDS: Nicotine 14 MG PATCH TOP SCH (09:15)
[2018-10-26] MEDS: Gabapentin 300 MG CAP PO SCH ×3 (09:16→20:12)
[2018-10-26] MEDS: Aspirin Chewable 81 MG TAB PO SCH (09:16)
[2018-10-26] MEDS: Lorazepam 1 MG TAB PO SCH ×2 (09:16→13:12)
[2018-10-26] MEDS: predniSONE 20 MG TAB PO SCH (09:16)
[2018-10-26] MEDS: Acetaminophen 325 MG TAB PO SCH ×2 (09:17→20:12)
[2018-10-26] MEDS: Lisinopril 10 MG TAB PO SCH ×2 (09:17→20:13)
[2018-10-26] MEDS: Clopidogrel Bisulfate 75 MG TAB PO SCH (09:17)
--- NOTE | 2018-10-26 10:27 | PRG ---
DATE OF SERVICE: 10/26/2018 SUBJECTIVE: Ms. Phoenix's pathology came back as small-cell yesterday. OBJECTIVE: VITAL SIGNS: Blood pressure 153/93, heart rate is 112, she is afebrile. LUNGS: Clear. HEART: Regular rhythm. S1 and S2 are normal. ABDOMEN: Soft and nontender. Given that she has a resting tachycardia, I will order an echocardiogram. I do think it is reasonable for her to move off monitored bed to the Oncology unit, so she would start with her chemotherapy. This tachycardia may be all related to her superior vena cava syndrome. LABORATORY DATA: Her lab was reviewed. White count is 11.8, hemoglobin 13.5, platelets 361,000. Electrolytes are normal. Renal function is normal. Creatinine is 0.72 today. IMPRESSION: 1. Small-cell lung cancer, clinically confined to the chest via workup so far. 2. One hotspot on bone scan, felt to be secondary to a fall and not metastatic disease at this time. 3. Resting tachycardia? Associated with superior vena cava syndrome. She has nothing to suggest early tamponade on exam. 4. We will transfer her to Oncology, so she can start chemo, and order an echocardiogram. Job ID: [id number]
[2018-10-26] MEDS: 1/2 NS w/KCL 20 mEq 1,000 ML IV SCH (12:29)
[2018-10-26] MEDS ORDERED: PALONOSETRON HCL 0.05 MG/ML 5 ML VIAL IVP SCH (13:45)
[2018-10-26] MEDS ORDERED: Dexamethasone 20 MG in Sodium Chloride 0.9% 50 ML IVPB SCH (13:45)
[2018-10-26] MEDS ORDERED: CARBOPLATIN IVPB SCH (13:45)
[2018-10-26] MEDS ORDERED: SODIUM CHLORIDE 0.9% IVPB SCH (13:45)
[2018-10-26] MEDS: PALONOSETRON HCL 0.05 MG/ML 5 ML VIAL IVP SCH (16:47)
[2018-10-26] MEDS ORDERED: Promethazine 25 MG TAB PO PRN (20:02)
[2018-10-26] MEDS: Temazepam 15 MG CAP PO SCH (20:13)
[2018-10-26] MEDS: Pravastatin Sodium 40 MG TAB PO SCH (20:13)
[2018-10-27] MEDS: 1/2 NS w/KCL 20 mEq 1,000 ML IV SCH ×3 (03:15→23:00)
[2018-10-27] MEDS: methylPREDNISolone Sod Succ 40 MG VIAL IVP SCH ×3 (05:48→22:55)
[2018-10-27 06:37] LABS: #Lymphocytes 0.7 thou/uL (1.20-3.40); #Monocytes 0.4 thou/uL (0.11-0.59); #Neutrophils 9.4 thou/uL (1.40-6.50); %Basophils 0.4 % (0.0-1.0); %Eosinophils 0.1 % (0.0-10.0); %Lymphocytes 6.2 % (21.0-51.0); %Monocytes 3.4 % (0.0-10.0); %Neutrophils 89.9 % (42.0-75.0); Hemoglobin 13.1 g/dL (12.0-16.0); Mean Corpuscular HGB CONC 32.5 g/dL (32.0-36.0); Mean Corpuscular Hemoglobin 33.2 pg (27.0-31.0); Mean Platelet Volume 6.8 fL (7.4-10.4); Platelet Count 363 thou/uL (130-400); RBC Distribution Width 11.7 % (11.5-14.5); Red Blood Cell (RBC) Count 3.95 mill/uL (4.20-5.40); White Blood Cell (WBC) Count 10.5 thou/uL (4.8-10.8)
[2018-10-27] MEDS: Mometasone/Formoterol 120 PUFF INHALER INH SCH ×2 (06:54→18:58)
[2018-10-27 06:58] LABS: ALT (SGPT) Less than 7 U/L (8-55); AST (SGOT) 10 U/L (5-34); Albumin 3.8 g/dL (3.4-4.8); Alkaline Phosphatase 52 U/L (40-150); Anion Gap 10 mmol/L (10-20); BUN (Urea Nitrogen) 14 mg/dL (9.8-20.1); Bilirubin, Total 0.5 mg/dL (0.2-1.2); Calc. Creatinine Clearance 101 mL/min (70-130); Calcium 9.8 mg/dL (7.8-10.44); Carbon Dioxide 24 mmol/L (23-31); Chloride 109 mmol/L (98-107); Estimated GFR-MDRD 82; Globulin 3.1 g/dL (2.4-3.5); Glucose 120 mg/dL (80-115); Potassium 4.3 mmol/L (3.5-5.1); Protein, Total 6.9 g/dL (6.0-8.3); Sodium 139 mmol/L (136-145)
[2018-10-27] MEDS: Clopidogrel Bisulfate 75 MG TAB PO SCH (08:47)
[2018-10-27] MEDS: Lisinopril 10 MG TAB PO SCH ×2 (08:47→21:09)
[2018-10-27] MEDS: Aspirin Chewable 81 MG TAB PO SCH (08:48)
[2018-10-27] MEDS: Gabapentin 300 MG CAP PO SCH ×3 (08:48→21:08)
[2018-10-27] MEDS: predniSONE 20 MG TAB PO SCH (08:49)
[2018-10-27] MEDS: Lorazepam 1 MG TAB PO SCH ×2 (08:51→21:08)
[2018-10-27] MEDS: Acetaminophen 325 MG TAB PO SCH ×2 (08:51→21:07)
[2018-10-27] MEDS: Nicotine 14 MG PATCH TOP SCH (08:53)
[2018-10-27] MEDS: Dicyclomine 10 MG CAP PO PRN (13:22)
[2018-10-27] MEDS: PALONOSETRON HCL 0.05 MG/ML 5 ML VIAL IVP SCH (14:51)
[2018-10-27] MEDS ORDERED: Lorazepam 2 MG/ML VIAL SLOW IVP SCH (16:30)
[2018-10-27] MEDS: CARBOPLATIN IVPB SCH (18:07)
[2018-10-27] MEDS: SODIUM CHLORIDE 0.9% IVPB SCH (18:07)
[2018-10-27] MEDS: Temazepam 15 MG CAP PO SCH (21:08)
[2018-10-27] MEDS: Pravastatin Sodium 40 MG TAB PO SCH (21:08)
[2018-10-28] MEDS: methylPREDNISolone Sod Succ 40 MG VIAL IVP SCH ×3 (05:30→21:06)
[2018-10-28] MEDS: 1/2 NS w/KCL 20 mEq 1,000 ML IV SCH ×3 (05:34→19:00)
[2018-10-28] MEDS: Mometasone/Formoterol 120 PUFF INHALER INH SCH ×2 (07:21→19:01)
[2018-10-28] MEDS: Nicotine 14 MG PATCH TOP SCH (09:23)
[2018-10-28] MEDS: Acetaminophen 325 MG TAB PO SCH ×2 (09:25→20:41)
[2018-10-28] MEDS: Clopidogrel Bisulfate 75 MG TAB PO SCH (09:25)
[2018-10-28] MEDS: predniSONE 20 MG TAB PO SCH (09:25)
[2018-10-28] MEDS: Lisinopril 10 MG TAB PO SCH ×2 (09:25→20:40)
[2018-10-28] MEDS: Aspirin Chewable 81 MG TAB PO SCH (09:26)
[2018-10-28] MEDS: Gabapentin 300 MG CAP PO SCH ×3 (09:26→20:41)
[2018-10-28] MEDS: Lorazepam 1 MG TAB PO SCH ×2 (09:26→20:39)
[2018-10-28] MEDS: Dicyclomine 10 MG CAP PO PRN (11:13)
[2018-10-28] MEDS ORDERED: Lorazepam 2 MG/ML VIAL SLOW IVP ONE (14:40)
[2018-10-28] MEDS: PALONOSETRON HCL 0.05 MG/ML 5 ML VIAL IVP SCH (15:02)
[2018-10-28] MEDS: SODIUM CHLORIDE 0.9% IVPB SCH (15:26)
[2018-10-28] MEDS: CARBOPLATIN IVPB SCH (15:26)
[2018-10-28] MEDS ORDERED: Lorazepam 2 MG/ML VIAL SLOW IVP PRN (17:56)
[2018-10-28] MEDS ORDERED: Lorazepam 2 MG/ML VIAL SLOW IVP SCH (18:00)
[2018-10-28] MEDS: Pravastatin Sodium 40 MG TAB PO SCH (20:39)
[2018-10-28] MEDS: Temazepam 15 MG CAP PO SCH (20:39)
[2018-10-28] MEDS ORDERED: PEGFILGRASTIM-JMDB 6 MG/0.6 ML SYRINGE SQ SCH (23:15)
[2018-10-29] MEDS: methylPREDNISolone Sod Succ 40 MG VIAL IVP SCH ×2 (05:47→13:40)
[2018-10-29] MEDS: Mometasone/Formoterol 120 PUFF INHALER INH SCH (06:24)
[2018-10-29] MEDS: 1/2 NS w/KCL 20 mEq 1,000 ML IV SCH ×3 (06:47→16:56)
[2018-10-29] MEDS: Acetaminophen 325 MG TAB PO SCH (08:57)
[2018-10-29] MEDS: Aspirin Chewable 81 MG TAB PO SCH (08:58)
[2018-10-29] MEDS: Lisinopril 10 MG TAB PO SCH (08:58)
[2018-10-29] MEDS: Clopidogrel Bisulfate 75 MG TAB PO SCH (08:58)
[2018-10-29] MEDS: Gabapentin 300 MG CAP PO SCH ×2 (08:58→16:21)
[2018-10-29] MEDS: Nicotine 14 MG PATCH TOP SCH (08:59)
[2018-10-29] MEDS: Lorazepam 1 MG TAB PO SCH (08:59)
[2018-10-29] MEDS: predniSONE 20 MG TAB PO SCH (08:59)
[2018-10-29 16:18] VITALS: TEMP 97.6
[2018-10-29 16:22] VITALS: BP 141/89
== END 2018-10-29 17:20 | disposition home or self-care (01) | DRG 181 ==
LOC: SCSER 13:14 → IMCU/EMU 17:40 → ONC 10-26 13:26
PROVIDERS: ADMIT Specialist; ATTEND Specialist
PROC: 0WBC4ZX Excision of Mediastinum, Percutaneous Endoscopic Approach, Diagnostic (ICD-10-PCS; principal; 2018-10-24)
DX: C34.11 Malignant neoplasm of upper lobe, right bronchus or lung (principal); I87.1 Compression of vein; F17.213 Nicotine dependence, cigarettes, with withdrawal; I31.3 Pericardial effusion (noninflammatory); I10 Essential (primary) hypertension; G70.00 Myasthenia gravis without (acute) exacerbation; M79.7 Fibromyalgia; M17.0 Bilateral primary osteoarthritis of knee; M47.9 Spondylosis, unspecified; L52 Erythema nodosum; F41.9 Anxiety disorder, unspecified; F31.9 Bipolar disorder, unspecified; I07.1 Rheumatic tricuspid insufficiency; E83.52 Hypercalcemia; Z91.19 Patient's noncompliance with other medical treatment and regimen; Z88.2 Allergy status to sulfonamides; Z98.890 Other specified postprocedural states; Z79.899 Other long term (current) drug therapy; Z91.81 History of falling; Z90.49 Acquired absence of other specified parts of digestive tract
CPT/HCPCS: 36415; 70553; 71260; 74177; 78306; 80048; 80053; 83519; 83880; 85025; 88305; 88331; 88334; 88341; 88342; 93306; 94640; 94660; 94760; 96374; A9503; A9577; J0670; J0690; J1100; J2001; J2060; J2469; J2704; J2920; J2930; J3010; J3480; J3489; J3490; J7050; J7512; J7620; J9045; J9181; Q0169; Q5108; Q9967

== ENCOUNTER 2018-11-20 12:37 | Day surgery (SDC) | payer SELFPAY ==
[~2018-11-20 12:37] MED LIST changes: +CARBOPLATIN IVPB SCH; +Dexamethasone Sod Phosphate 20 MG in Sodium Chloride 0.9% 50 ML IVPB SCH; -Iopamidol 370 76% 100 ML VIAL ONE; +Palonosetron HCl 0.25 MG in Sodium Chloride 0.9% 50 ML IVPB SCH; +SODIUM CHLORIDE 0.9% IVPB SCH
[2018-11-20 13:00] VITALS: BP 159/97; TEMP 98
== END 2018-11-20 15:36 | disposition home or self-care (01) ==
LOC: ONC/OP 12:37
PROVIDERS: ATTEND Internal Medicine Hematology & Oncology
DX: Z51.11 Encounter for antineoplastic chemotherapy (principal); C34.31 Malignant neoplasm of lower lobe, right bronchus or lung; Z88.2 Allergy status to sulfonamides; Z79.82 Long term (current) use of aspirin; Z79.899 Other long term (current) drug therapy
CPT/HCPCS: 96375; 96413; 96417; J1100; J2469; J7050; J9045; J9181

== ENCOUNTER 2018-11-21 12:27 | Day surgery (SDC) | payer SELFPAY ==
[~2018-11-21 12:27] MED LIST changes: -Dexamethasone Sod Phosphate 20 MG in Sodium Chloride 0.9% 50 ML IVPB SCH; -Palonosetron HCl 0.25 MG in Sodium Chloride 0.9% 50 ML IVPB SCH
[2018-11-21] MEDS ORDERED: Sodium Chloride 0.9% 20 ML ONE (14:33)
== END 2018-11-21 16:06 | disposition home or self-care (01) ==
LOC: ONC/OP 12:27
PROVIDERS: ATTEND Internal Medicine Hematology & Oncology
DX: Z51.11 Encounter for antineoplastic chemotherapy (principal); C34.31 Malignant neoplasm of lower lobe, right bronchus or lung; Z88.2 Allergy status to sulfonamides
CPT/HCPCS: 96413; 96417; J1642; J7050; J9181

== ENCOUNTER 2018-11-22 12:35 | Day surgery (SDC) | payer SELFPAY ==
[~2018-11-22 12:35] MED LIST changes: +Sodium Chloride 0.9% 20 ML ONE
[2018-11-22] MEDS ORDERED: Sodium Chloride 0.9% 20 ML ONE (12:42)
[2018-11-22 13:33] VITALS: BP 147/75; TEMP 97.3
== END 2018-11-22 15:34 | disposition home or self-care (01) ==
LOC: ONC/OP 12:35
PROVIDERS: ATTEND Internal Medicine Hematology & Oncology
DX: Z51.11 Encounter for antineoplastic chemotherapy (principal); C34.31 Malignant neoplasm of lower lobe, right bronchus or lung; Z88.1 Allergy status to other antibiotic agents
CPT/HCPCS: 96413; 96417; J1642; J7050; J9045; J9181

== ENCOUNTER 2018-12-17 12:29 | Day surgery (SDC) | payer SELFPAY ==
[~2018-12-17 12:29] MED LIST changes: +Dexamethasone Sod Phosphate 20 MG in Sodium Chloride 0.9% 50 ML IVPB SCH; +ETOPOSIDE IVPB SCH; +Palonosetron HCl 0.25 MG in Sodium Chloride 0.9% 50 ML IVPB SCH; -Sodium Chloride 0.9% 20 ML ONE
[2018-12-17 12:55] VITALS: BP 137/73; TEMP 97.9
== END 2018-12-17 15:48 | disposition home or self-care (01) ==
LOC: ONC/OP 12:29
PROVIDERS: ATTEND Internal Medicine Hematology & Oncology
DX: Z51.11 Encounter for antineoplastic chemotherapy (principal); C34.31 Malignant neoplasm of lower lobe, right bronchus or lung
CPT/HCPCS: 96375; 96413; 96417; J1100; J2469; J7050

== ENCOUNTER 2018-12-18 13:15 | Day surgery (SDC) | payer SELFPAY ==
[~2018-12-18 13:15] MED LIST changes: -Dexamethasone Sod Phosphate 20 MG in Sodium Chloride 0.9% 50 ML IVPB SCH; -Palonosetron HCl 0.25 MG in Sodium Chloride 0.9% 50 ML IVPB SCH
[2018-12-18 13:24] VITALS: BP 129/74; TEMP 97.9
== END 2018-12-18 16:40 | disposition home or self-care (01) ==
LOC: ONC/OP 13:15
PROVIDERS: ATTEND Internal Medicine Hematology & Oncology
DX: Z51.11 Encounter for antineoplastic chemotherapy (principal); C34.31 Malignant neoplasm of lower lobe, right bronchus or lung; Z88.2 Allergy status to sulfonamides
CPT/HCPCS: 96413; 96417; J7050; J9045; J9181

== ENCOUNTER 2018-12-19 12:45 | Day surgery (SDC) | payer SELFPAY ==
[2018-12-19 13:01] VITALS: BP 128/77; TEMP 97.5
== END 2018-12-19 15:47 | disposition home or self-care (01) ==
LOC: ONC/OP 12:45
PROVIDERS: ATTEND Internal Medicine Hematology & Oncology
DX: Z51.11 Encounter for antineoplastic chemotherapy (principal); C34.31 Malignant neoplasm of lower lobe, right bronchus or lung; Z88.2 Allergy status to sulfonamides
CPT/HCPCS: 96413; 96417; J7050; J9045; J9181

== ENCOUNTER 2019-01-08 12:35 | Day surgery (SDC) | payer SELFPAY ==
[2019-01-08] MEDS ORDERED: PALONOSETRON HCL 0.05 MG/ML 5 ML VIAL IVP SCH (13:15)
[2019-01-08] MEDS ORDERED: SODIUM CHLORIDE 0.9% IVPB SCH ×2 (13:15)
[2019-01-08] MEDS ORDERED: ETOPOSIDE IVPB SCH (13:15)
[2019-01-08] MEDS ORDERED: Dexamethasone 10 MG/ML VIAL SLOW IVP SCH (13:15)
[2019-01-08] MEDS ORDERED: CARBOPLATIN IVPB SCH (13:15)
[2019-01-08 13:22] VITALS: BP 135/88; TEMP 98.1
[2019-01-08] MEDS ORDERED: Palonosetron HCl 0.25 MG in Sodium Chloride 0.9% 50 ML IVPB SCH (13:30)
[2019-01-08] MEDS ORDERED: Dexamethasone 20 MG in Sodium Chloride 0.9% 50 ML IVPB SCH (13:30)
== END 2019-01-08 16:47 | disposition home or self-care (01) ==
LOC: ONC/OP 12:35
PROVIDERS: ATTEND Internal Medicine Hematology & Oncology
DX: Z51.11 Encounter for antineoplastic chemotherapy (principal); C34.31 Malignant neoplasm of lower lobe, right bronchus or lung; Z88.2 Allergy status to sulfonamides
CPT/HCPCS: 96375; 96413; 96417; J1100; J2469; J7050; J9045; J9181

== ENCOUNTER 2019-01-09 13:16 | Day surgery (SDC) | payer SELFPAY ==
[~2019-01-09 13:16] MED LIST changes: +PEGFILGRASTIM-JMDB 6 MG/0.6 ML SYRINGE SQ SCH
[2019-01-09 14:54] VITALS: BP 111/60; TEMP 98.4
== END 2019-01-09 15:52 | disposition home or self-care (01) ==
LOC: ONC/OP 13:16
PROVIDERS: ATTEND Internal Medicine Hematology & Oncology
DX: Z51.11 Encounter for antineoplastic chemotherapy (principal); C34.31 Malignant neoplasm of lower lobe, right bronchus or lung; Z88.2 Allergy status to sulfonamides
CPT/HCPCS: 96413; 96417; J7050; J9045; J9181

== ENCOUNTER 2019-01-10 11:21 | Day surgery (SDC) | payer SELFPAY ==
[~2019-01-10 11:21] MED LIST changes: -PEGFILGRASTIM-JMDB 6 MG/0.6 ML SYRINGE SQ SCH
[2019-01-10] MEDS ORDERED: Sodium Chloride 0.9% 20 ML ONE (11:50)
== END 2019-01-10 14:42 | disposition home or self-care (01) ==
LOC: ONC/OP 11:21
PROVIDERS: ATTEND Internal Medicine Hematology & Oncology
DX: Z51.11 Encounter for antineoplastic chemotherapy (principal); C34.31 Malignant neoplasm of lower lobe, right bronchus or lung; Z88.2 Allergy status to sulfonamides
CPT/HCPCS: 96413; 96417; J7050; J9045; J9181

== ENCOUNTER 2019-01-11 13:59 | Day surgery (SDC) | payer SELFPAY ==
[~2019-01-11 13:59] MED LIST changes: -CARBOPLATIN IVPB SCH; -ETOPOSIDE IVPB SCH; +PEGFILGRASTIM-JMDB 6 MG/0.6 ML SYRINGE SQ SCH; -SODIUM CHLORIDE 0.9% IVPB SCH
== END 2019-01-11 14:42 | disposition home or self-care (01) ==
LOC: ONC/OP 13:59
PROVIDERS: ATTEND Internal Medicine Hematology & Oncology
DX: Z51.11 Encounter for antineoplastic chemotherapy (principal); C34.31 Malignant neoplasm of lower lobe, right bronchus or lung; Z88.2 Allergy status to sulfonamides
CPT/HCPCS: 96372; Q5108

== ENCOUNTER 2019-02-18 09:35 | Outpatient (CLI) | payer OTHER ==
[~2019-02-18 09:35] MED LIST changes: +Iopamidol 370 76% 100 ML VIAL ONE; -PEGFILGRASTIM-JMDB 6 MG/0.6 ML SYRINGE SQ SCH
--- NOTE | 2019-02-18 12:26 | CT ---
CT THORAX WITH CONTRAST CT ABDOMEN WITH CONTRAST CT PELVIS WITH CONTRAST: DATE: 02/18/2019 HISTORY: 63-year-old female with malignant neoplasm of right upper lobe bronchus. Follow-up after treatment. R estaging. COMPARISON: Chest CT of 10/23/[address] of 10/25/2018. TECHNIQUE: IV iodinated contrast media: Administered Oral contrast media: Administered Single phase scans of thorax, abdomen, and pelvis. FINDINGS: Thorax: The previously demonstrated large right upper lobe pulmonary mass extending into the mediastinum, is no longer present. The adjacent satellite nodule has also disappeared. There are no postsurgical changes in the chest. No pneumothorax, pleural effusion, pulmonary edema, or consolidation. No eviden ce of metastatic pulmonary nodules. Mild, nonspecific reticular pulmonary densities at anterior aspect of right upper lobe. Trachea and major bronchi are patent and clear. There is mild, small amou nt of ill-defined, hazy soft tissue density material in the right side of the mediastinum including right pretracheal space, and abutting the right mainstem bronchus anteriorly. The previously severely compressed the superior vena cava is now mildly narrowed but patent. Tiny pericardial effusion. No cardiomegaly. No cardiomegaly. No thoracic aortic aneurysm or dissection. ABDOMEN: Normal liver, pancreas, adrenals, and spleen. 2 cm right renal mid pole parenchymal cyst. No hydrone phrosis. No abdominal aortic aneurysm. No retroperitoneal lymphadenopathy. No ascites. No small bowel dilation. No interval change. Pelvis: No signs of colonic diverticulitis. No iliac chain lymphadenopathy. No free fluid. Unremarkable urina ry bladder contrast. No interval change. IMPRESSION: 1. Interval resolution of the large right upper lobe pulmonary mass following chemotherapy. It is ass umed that this is small cell carcinoma. 2. Residual soft tissue density material in the right half of the mediastinum, small amount. Consiste nt with postchemotherapy changes of the mediastinal malignant tumor material. Uncertain whether or not there is currently active neoplasm here. PET scan would be useful in that regard. 3. No evidence of metastatic disease in the abdomen or pelvis.
== END 2019-02-18 09:36 | disposition home or self-care (01) ==
LOC: SCSCT 09:35
PROVIDERS: ATTEND Internal Medicine Hematology & Oncology
DX: C34.31 Malignant neoplasm of lower lobe, right bronchus or lung (principal); R91.8 Other nonspecific abnormal finding of lung field; J98.59 Other diseases of mediastinum, not elsewhere classified
CPT/HCPCS: 71260; 74177; 82565; Q9967

== ENCOUNTER 2019-04-23 08:45 | Outpatient (CLI) | payer SELFPAY ==
--- NOTE | 2019-04-23 10:49 | MRI ---
BRAIN MRI WITH AND WITHOUT CONTRAST: HISTORY: Metastatic lung cancer. COMPARISON: 10/24/2018. FINDINGS: Gradient echo sequence: A small focus of stable hypointensity along the right frontal cortex likely r epresenting a focus of hemosiderin deposition due to remote insult. No acute hemorrhage. Calvarium: Appropriate T1 marrow signal intensity. Midline brain parenchyma: Unremarkable. Cerebrum:Redemonstration of multiple intraaxial masses involving the left and right labrum. There is associated T2 and FLAIR hyperintensity suggesting components of vasogenic edema. Additionally, there is evidence of some restricted diffusion suggesting malignant cells with a large nuclear to cyt oplasmic ratio. There is associated enhancement. Additional T2 and FLAIR white matter hyperintensities due to chronic small vessel ischemic change are noted. Ventricles: No evidence of hydrocephalus. Sinuses and mastoid air cells: Adequate aeration. Diffusion: There is no evidence of restricted diffusion to suggest infarct. Rather, there is restrict ed diffusion associated with intra-axial metastatic lesions. Postcontrast images:The overall number of enhancing intraparenchymal masses has increased. Currently, there appear to be 5 discrete lesions. Previously, definite intraparenchymal metastases was difficult to appreciate. Currently, there is a peripherally enhancing lesion in the left temporal lob e measuring 1.2 x 1.1 cm. There is an enhancing focus in the right occipital lobe measuring 1.1 x 1.1 cm. Additional smaller enhancing lesions are noted in the right caudate nucleus, right lentiform nucleus and left posterior medial parietal lobe. IMPRESSION: Interval development of multifocal intracranial metastases. CODE T Transcribed Date/Time: 04/23/2019 11:06 AM
== END 2019-04-23 08:46 | disposition home or self-care (01) ==
LOC: SCSMRI 08:45
PROVIDERS: ATTEND Internal Medicine Hematology & Oncology
DX: C34.31 Malignant neoplasm of lower lobe, right bronchus or lung (principal); C79.31 Secondary malignant neoplasm of brain
CPT/HCPCS: 70553; 82565

== ENCOUNTER 2019-04-26 10:54 | Outpatient (CLI) | payer SELFPAY ==
--- NOTE | 2019-04-26 13:04 | CT ---
EXAM: CT of the chest with contrast CT of the abdomen and pelvis with contrast HISTORY: Malignant neoplasm of the right lung with brain metastases COMPARISON: 02/18/2019 TECHNIQUE: 1. Multiple contiguous axial images were obtained in a CT the chest with contrast. Coronal and sagitt al reformats were performed. 2. Multiple contiguous axial images were obtained and a CT of the abdomen and pelvis with contrast. C oronal and sagittal reformats were performed. FINDINGS: CT CHEST: HEART: Normal in size without focal cardiac abnormality there is a stable small amount of pericardial thickening and a small pericardial effusion. This extends into the right paratracheal stripe and hilar region as was mentioned on the prior examination. MEDIASTINUM: No hilar or mediastinal lymphadenopathy. Soft tissue density fullness is seen in the pre tracheal soft tissues measuring 1.8 cm in greatest dimension. This likely represents either postsurgical or post radiation therapy change. LUNGS: New groundglass multifocal infiltrates are seen in the right lung No focal infiltrates, nodule s, or masses. PLEURAL SPACE: No pneumothorax or pleural effusion. CHEST WALL SOFT TISSUES: Unremarkable CT ABDOMEN/PELVIS: ABDOMEN: LIVER: within normal limits. BILE DUCTS: Normal caliber. GALLBLADDER: Removed PANCREAS: within normal limits. SPLEEN: within normal limits. ADRENALS: within normal limits. KIDNEYS: within normal limits. PELVIS: REPRODUCTIVE ORGANS: No pelvic masses. URETERS: within normal limits. BLADDER: within normal limits. PERITONEUM: No ascites or free air, no fluid collection. BOWEL: Normal caliber. Scattered diverticula in the colon. Normal appendix. MESENTERY AND RETROPERITONEUM: No enlarged mesenteric or retroperitoneal lymph nodes. VESSELS: Atherosclerotic calcifications. ABDOMINAL WALL: within normal limits. OSSEOUS STRUCTURES: Degenerative changes in the spine. IMPRESSION: 1. Stable exam without evidence of recurrent or metastatic disease. 2. Right lung infiltrates may represent pneumonia.
== END 2019-04-26 10:55 | disposition home or self-care (01) ==
LOC: SCSCT 10:54
PROVIDERS: ATTEND Internal Medicine Hematology & Oncology
DX: C34.31 Malignant neoplasm of lower lobe, right bronchus or lung (principal); C79.31 Secondary malignant neoplasm of brain; R91.8 Other nonspecific abnormal finding of lung field
CPT/HCPCS: 71260; 74177; Q9967

== ENCOUNTER 2019-07-01 11:17 | Outpatient (CLI) | payer SELFPAY ==
--- NOTE | 2019-07-01 13:26 | MRI ---
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 COMPARISON: 04/23/2019 TECHNIQUE: Multiplanar, multisequence MRI of the brain performed pre- and post-IV injection of gadolinium based contrast agent. FINDINGS: The previously demonstrated faint subcentimeter small focus of mild round enhancement in the right ba mony ganglia is no longer visualized. Superior and medial to that, there was a subcentimeter small round ring-enhancing lesion in the right caudate body with restricted diffusion. This is now a punctate 2 mm focus of enhancement and no longer has restricted diffusion. The previously demonstrated 1.2 cm round rim enhancing intra-axial mass in the lateral aspect of left temporal lobe with restricted diffusion, is now a tiny 0.4 cm focus of enhancement, with no restricted diffusion. The surrounding vasogenic edema has resolved. The 1.1 cm rim-enhancing mass in the right occipital lobe with restricted diffusion has resolved. The re is currently no enhancement, edema, or restricted diffusion involving this location. There is no acute hemorrhage. No new metastatic lesions. No mass effect, midline shift, extra-axial f luid collection, or obstructive hydrocephalus. Diffuse mostly mild chronic ischemic white matter changes. IMPRESSION: Significant interval improvement after radiation therapy, in the several intra-axial small metastatic lesions since the prior MRI.
== END 2019-07-01 11:18 | disposition home or self-care (01) ==
LOC: SCSMRI 11:17
PROVIDERS: ATTEND Radiology Radiation Oncology
DX: C79.31 Secondary malignant neoplasm of brain (principal)
CPT/HCPCS: 70553; 82565

== ENCOUNTER 2019-12-26 09:01 | Outpatient (CLI) | payer MEDICARE, OTHER ==
--- NOTE | 2019-12-26 10:32 | CT ---
CHEST CT WITH CONTRAST ABDOMEN CT WITH CONTRAST PELVIC CT WITH CONTRAST: HISTORY: Right lower lobe neoplasm. Brain metastases. Correlation: None. COMPARISON: 04/26/2019, 02/18/2019. FINDINGS: Chest CT: Mediastinum: No mass, lymphadenopathy or hematoma. Stable abnormal hypoattenuation in the right parat mario/precarinal region measuring 1.9 x 1.7 cm (previously measuring 1.7 x 2.1 cm. Aorta: Normal caliber aorta. No periaortic fat stranding. Minimal atherosclerosis. Heart: Normal heart size. There is a small amount of pericardial fluid. Trachea and central bronchi: Patent. Pleural spaces: No significant fluid Right lung: Stable post treatment changes in the right lung. Focal opacity in the anterior right uppe r lobe is slightly less prominent and currently measures 2.4 x 1.2 cm. Previously, this opacity measured 2.0 x 1.8 cm. Interval development of a solid 0.4 cm nodule in the right upper lobe. Stable fibrosis and scarring involving the posterior aspect of the superior segment of the right lower lobe. Stable 0.4 cm solid nodule in the right lower lobe. Left lung:Stable scar and atelectasis. Stable minimal groundglass opacities in the left upper lobe. N o suspicious masses or consolidation. Pneumothorax: None. Abdomen CT: Gallbladder: Surgically absent. Portal vein: Patent. Liver: Interval development of an ill-defined hypodense focus in the left hepatic lobe, segment 2 kristina suring 1.7 x 2.5 cm. Interval development of additional smaller hypodensities in the hepatic dome and right hepatic lobe segment 7. Spleen: Appropriate enhancement. Pancreas: Appropriate enhancement. Adrenal glands: 7 right adrenal gland. Interval development of a heterogeneous mass in the left adren al gland, measuring 3.8 x 2.4 cm. Lymphadenopathy: Interval development of a large gastric hepatic lymph node measuring 1.6 x 0.9 cm. U pper normal retroperitoneal lymph nodes. Kidneys: Symmetric enhancement. No obstructive uropathy. Mesentery: No mass, lymphadenopathy, free air or free fluid. Alimentary canal: Normal gastric mucosa. Normal caliber small bowel loops. Ileocecal junction is norm al. Normal caliber appendix. Scattered fecal material in a nondistended, nondilated colon. Occasional diverticulum. No diverticulitis. Pelvis CT: Urinary bladder has a normal appearance. No pelvic mass, lymphadenopathy, free air or free fluid. Pre sacral fat is preserved. Uterus and adnexal structures are normal. Osseous structures: No lytic or blastic lesions within the osseous structures. IMPRESSION: 1. Essentially stable posttreatment changes in the right lung. 2. There is stable hypodensity in the right mediastinum. 3. Interval development of a left adrenal mass, worrisome for metastases. 4. Interval development of a hypodensity in the left hepatic lobe with additional smaller hypodensiti es in the right hepatic lobe. The right hepatic lesions are too small to biopsy under CT guidance. The left hepatic lobe lesion is in a position which would not allow for adequate CT-guided biopsy. 5. Right upper lobe parenchymal nodule as described above. Given interval development, small malignan t nodules cannot be excluded. Transcribed Date/Time: 12/26/2019 1:06 PM
== END 2019-12-26 09:02 | disposition home or self-care (01) ==
LOC: SCSCT 09:01
PROVIDERS: ATTEND Internal Medicine Hematology & Oncology
DX: C34.31 Malignant neoplasm of lower lobe, right bronchus or lung (principal); E27.8 Other specified disorders of adrenal gland; K76.89 Other specified diseases of liver; R91.8 Other nonspecific abnormal finding of lung field; J98.4 Other disorders of lung
CPT/HCPCS: 71260; 74177; 82565

== ENCOUNTER 2020-01-14 07:56 | Outpatient (CLI) | payer MEDICARE ==
--- NOTE | 2020-01-14 11:22 | PET ---
PET W CT Skull to Mid Thigh History: Malignant neoplasm of lower lobe, right bronchus or lung Comparison: CT chest abdomen and pelvis December 26, 2019 Findings: PET/CT was performed from the skull to the mid thigh after the intravenous administration o f 12.4 mCi F-[address] was also performed for attenuation correction. Symmetric intracranial uptake of radiotracer. New 1.5 cm mass within the pancreatic body which is FDG avid with SUV max 6.43 with mild pancreatic ductal dilatation of the tail. Retropancreatic lymph node is mildly FDG avid with SUV max 3.82 which measures 12 mm in short axis concerning for metastasi s. Left gastric lymph node has a short axis of 12 mm new from 2019 with SUV max 2.3 pulse concerning for metastasis. Left adrenal metastatic focus has SUV max 14.3 and measures up to 3.8 cm, similar to the comparison C T exam. The dominant hepatic metastatic focus within segment 2 has SUV max of 10.3. The other hepatic lesions are under PET resolution for FDG avidity although are likely also metastatic since they are new from 2019 involving segments 5, 6, 7, and 8. Right axillary lymph node has SUV max of 7.1 with a short axis dimension of only 8 mm. The patient's right upper lobe radiation change is not FDG avid and is indicative of scar. There is described small lung nodules or under PET CT FDG resolution. No osseous metastatic disease is appreciated. Noncontrast evaluation of the spleen and kidneys are unremarkable. No dilated loops of large or small bowel. Impression: 1. FDG avid 1.5 cm pancreatic mass at the mid body with distal pancreatic ductal dilatation indicativ e of pancreatic adenocarcinoma. Metastatic small cell cancer is felt less likely. There is adjacent posterior peripancreatic lymph node which is FDG avid suggesting metastasis. Left gastric lymph node is only mildly FDG avid although is also concerning for early metastatic involvement 2. Dominant hepatic segment 2 mass is FDG avid indicative of metastatic disease. This felt to be panc reatic in nature given the low internal attenuation. 3. Left adrenal mass is also FDG avid and also felt to reflect pancreatic metastatic disease. 4. Sub-5 mm hypodensities of the liver seen on recent CT exam are new from 2019 and although are unde r the resolution for FDG avidity evaluation are also likely small pancreatic metastasis. 5. Parenchymal scar right upper lobe without evidence for tumor recurrence. 6. SUV avid right axillary lymph node felt to be reactive given its continued reniform shape although could harbor metastatic disease, which would be atypical for pancreatic cancer to go to the axilla. Patient may benefit from diagnostic mammography. Dr. Godfrey notified of findings via telephone around 11:05 AM.
== END 2020-01-14 07:57 | disposition home or self-care (01) ==
LOC: PET 07:56
PROVIDERS: ATTEND Internal Medicine Hematology & Oncology
DX: C34.31 Malignant neoplasm of lower lobe, right bronchus or lung (principal); K86.89 Other specified diseases of pancreas; R16.0 Hepatomegaly, not elsewhere classified; E27.8 Other specified disorders of adrenal gland; J98.4 Other disorders of lung
CPT/HCPCS: 78815; A9552

== ENCOUNTER 2020-01-16 08:08 | Outpatient (CLI) | payer MEDICARE ==
--- NOTE | 2020-01-16 14:11 | MRI ---
MRI BRAIN WITH AND WITHOUT CONTRAST: DATE: 01/16/2020 HISTORY: 64-year-old male with multiple brain metastases from "C 34.31, malignant neoplasm of lower lobe, righ t bronchus or lung," follow-up. Status post radiation therapy. Dr. Bowden discussed the findings by telephone with Dr. Godfrey at 2:08 PM 01/16/2020 COMPARISON: 07/01/2019 TECHNIQUE: Multiplanar, multisequence MRI of the brain performed pre- and post-IV injection of gadolinium based contrast agent. FINDINGS: The multiple brain metastases demonstrated on the MRI of 04/23/2019, had dramatically improved on . However, now they are significantly worse than on the earlier MRI of 04/23/2019. Left side: The largest of these is in the lateral mid temporal lobe, originally measuring 1.1 x 1.2 cm, then shr inking down to 0.4 cm, now has increased to 2.4 x 2.1 cm. There is a new 1 x 1.1 cm enhancing tumor mass at the uncus of the left temporal lobe. There is a new 0.7 x 0.8 cm ring-enhancing mass at the left posterior paramedian parietal lobe. There is a new 0.8 x 0.6 cm faintly enhancing mass lateral lower aspect of the left precentral gyrus. New 0.7 x 0.7 cm faintly enhancing lesion at the medial aspect of the left anterior temporal lobe. Right side: New 0.9 x 0.6 cm enhancing lesion at the far inferior aspect of right cerebellar hemisphere. Interval growth of the originally 1.1 x 1.1 cm right occipital lesion which subsequently essentially resolved on 07/01/2019, has grown to 1.4 x 1.8 cm. The metastatic lesion measuring originally 0.6 x 0.7 cm at right caudate nucleus, became punctate on 07/01/2019, has now increased in size to 1 x 1 cm. In the right putamen of basal ganglia, a faintly enhancing 0.5 x 0.6 cm lesion had essentially resolv ed on 07/01/2019, has now grown to 1.3 x 1.4 cm. All of these metastatic lesions are surrounded by vasogenic edema. The largest region of vasogenic ed bernie in the left temporal lobe, followed by the one in the right occipital lobe, followed by right basal ganglia. This vasogenic edema is much worse than on 04/23/2019. The chronic ischemic white matter changes have become significantly worse than on 04/23/2019, consist ent with postradiation changes. The metastatic lesions demonstrate partial restricted diffusion consistent with small round blue cell tumors with high nucleus to cytoplasm ratios suggestive of small cell lung cancer. Punctate microscopic hemorrhage involving the lesions in right basal ganglia and right caudate. No ma croscopic overt hemorrhage. No obstructive hydrocephalus, mass effect, midline shift, or extra-axial fluid collection. IMPRESSION: 1) multiple brain metastases have become much worse compared to 07/01/2019 and much worse compared to 04/23/2019. The original lesions have increased in size, and there are new metastases. Degree of vasogenic edema is significantly worse. 2) new finding of post radiation changes of the brain.
== END 2020-01-16 08:09 | disposition home or self-care (01) ==
LOC: SCSMRI 08:08
PROVIDERS: ATTEND Internal Medicine Hematology & Oncology
DX: C34.31 Malignant neoplasm of lower lobe, right bronchus or lung (principal); C79.31 Secondary malignant neoplasm of brain
CPT/HCPCS: 70553

== ENCOUNTER 2020-03-10 08:18 | Outpatient (CLI) | payer MEDICARE ==
--- NOTE | 2020-03-10 13:44 | MRI ---
MRI BRAIN WITH AND WITHOUT CONTRAST: Date: 03/10/2020 INDICATION: Brain metastasis. Malignant neoplasm of lower lobe lung. Comparison made to recent MRI dated 01/16/2020. FINDINGS: FLAIR sequence again shows diffuse white matter hyperintensity consistent with post radiation change. Multiple enhancing metastases are again noted. In the right cerebral hemisphere beginning superiorly there is a subependymal nodule extending into t he right lateral ventricle which is stable. This nodule does exhibit some increased T1 signal today w hich could represent some internal blood product when compared to the prior study. There is a ring en hancing mass slightly more inferior in the right basal ganglia which is stable. There is a ring enhan cing mass in the right occipital lobe which is stable. In the left cerebral hemisphere, there is an enhancing nodule in the deep white matter posteriorly in the parietal lobe, stable. An enhancing nodule peripherally in the precentral region of the left frontal lobe is stable. An enhancing mass peripheral left temporal lobe is unchanged in size. An enhancing mass medial left temporal lobe in the region of the hippocampus is unchanged in size. The vasogenic edema in the left temporal lobe is slightly improved today. Review of the posterior fossa reveals a tiny enhancing nodule along the posterior margin of the right cerebellum which is stable. IMPRESSION: The number and size of the metastatic lesions to the brain have not significantly changed when compar ed to 01/16/2020. POS: CHRISTIANO
== END 2020-03-10 08:19 | disposition home or self-care (01) ==
LOC: SCSMRI 08:18
PROVIDERS: ATTEND Internal Medicine Hematology & Oncology
DX: C34.31 Malignant neoplasm of lower lobe, right bronchus or lung (principal); C79.31 Secondary malignant neoplasm of brain; G93.9 Disorder of brain, unspecified
CPT/HCPCS: 70553

== ENCOUNTER 2020-04-14 11:04 | Outpatient (CLI) | payer MEDICARE ==
--- NOTE | 2020-04-14 16:18 | PET ---
PET CT: 04/14/20 HISTORY: 64-year-old female with malignant neoplasm of lower lobe right bronchus of lung. Exam requested to ev aluate response to treatment. TECHNIQUE: PET scan with CT attenuation correction was performed from the base of the brain through the proximal thighs following the intravenous administration of 13.1 millicuries of 15-fluorodeoxyglucose in the right hand. COMPARISON: 01/14/20. FINDINGS: The previously noted hypermetabolic small right axillary lymph node is no longer seen and was most li rae due to extravasation at the site of injection in the right antecubital fossa on the previous bradley dy. No flaca hypermetabolism is seen in the mediastinum, hilar, axillary, cervical, pelvic or inguinal re gions. No hypermetabolic pulmonary nodules are seen. There is increased uptake in the right upper lobe with an SUV of 3.3 consistent with radiation pneumonitis. No hypermetabolic pulmonary nodules are seen. There are numerous hypermetabolic lesions in the liver. The previously noted lesion in the left lobe of the liver has increased in size and uptake on the current exam with an SUV of 16.2 (previously 10. 3). Remainder of the hypermetabolic lesions in the liver are all new. The SUV in the lesion in the do me is 18.3 and right lobe is 19.6. The hypermetabolic lesion in the body of the pancreas is again noted with an SUV of 7.5 (previously 6 .4) and the hypermetabolic left adrenal mass has a current SUV of 19 (previously 14.3). Multiple new hypermetabolic lymph nodes are seen with an SUV of 4.5 in the gastrohepatic ligament, 12 in the left para-aortic and 10.2 in the aortocaval lymph nodes. There is a focal area of increased uptake in the left pedicle of L5 with an SUV of 5.1 which is new s kashif the last exam. No hypermetabolic right adrenal or splenic lesions are seen. There is physiologic activity in the GI and tracts and the visualized portions of the brain. The CT scan used for attenuation correction demonstrates no evidence of pleural effusions or ascites. IMPRESSION: Interval worsening of metastatic disease since 01/14/20. POS: MORGAN
== END 2020-04-14 11:05 | disposition home or self-care (01) ==
LOC: PET 11:04
PROVIDERS: ATTEND Internal Medicine Hematology & Oncology
DX: C34.31 Malignant neoplasm of lower lobe, right bronchus or lung (principal)
CPT/HCPCS: 78815; A9552

== ENCOUNTER 2020-05-21 12:18 | Outpatient (CLI) | payer OTHER ==
[2020-05-21] MEDS ORDERED: Magnevist 469MG/ML 20 ML VIAL ONE (14:48)
--- NOTE | 2020-05-21 15:42 | MRI ---
MRI BRAIN WITH AND WITHOUT CONTRAST: Date: 05/21/2020 INDICATION: Assess brain mets. Lung cancer. Comparison made to MRI brain dated 03/10/2020. FINDINGS: Mild cortical volume loss. Ventricles remain normal size. Diffuse bilateral white matter single inten sity seen on FLAIR sequence indicating diffuse chronic white matter ischemic change and possibly radi ation change. This appears stable. Multiple metastatic lesions are again noted. The subependymal lesion mid right lateral ventricle continues to demonstrate high T1 signal on noncon trast image. It is unchanged in size and appearance. The lesion just inferior in the right upper basal ganglia region shows ring enhancement and measures 1.5 cm AP dimension. Not significantly changed. This lesion does show increased T1 signal on noncontr ast images suggesting some internal hemorrhage since prior exam. The ring enhancing mass in the right occipital lobe continues to measure approximately 1.7 cm maximal dimension and is stable. In the left cerebral hemisphere, enhancing nodule in the white matter left parietal lobe measuring 8. 0 mm is stable. The 5.0 mm enhancing nodule in the peripheral left frontal lobe precentral region was described previ ously and appears stable. The large enhancing mass in the left temporal lobe measuring 2.5 cm is stable in size. The enhancing nodule in the medial left temporal lobe at the hippocampus measures 8.0 mm today. It ap pears slightly smaller to prior exam at which time it measures 10.0 mm. There is a tiny enhancing nodule in the inferior right cerebellum which is stable. IMPRESSION: Numerous brain lesions described above appear relatively stable from 03/10/2020. The hippocampal lesi on in the left medial temporal lobe is slightly smaller. The degree of peripheral enhancement in all the lesions is less intense today which may represent some interval improvement. POS: SOHAM
== END 2020-05-21 12:19 | disposition home or self-care (01) ==
LOC: MRI 12:18
PROVIDERS: ATTEND Internal Medicine Hematology & Oncology
DX: C79.31 Secondary malignant neoplasm of brain (principal); C34.31 Malignant neoplasm of lower lobe, right bronchus or lung; G93.89 Other specified disorders of brain
CPT/HCPCS: 70553

== ENCOUNTER 2020-06-02 07:30 | Outpatient (CLI) | payer MEDICARE ==
--- NOTE | 2020-06-02 14:16 | PET ---
Nuclear medicine FDG PET/CT: (Positron emission tomography and computed tomography) DATE: 06/02/2020 HISTORY: 64-year-old female with malignant neoplasm of upper lobe, right bronchus or lung, C 34.31. Evaluate f or response to treatment. Small cell lung cancer. COMPARISON: 04/14/2020 TECHNIQUE: IV injection of F-18 fluorodeoxyglucose (FDG) dose: 12.1 mCi. PET scan and attenuation correction CT performed from skull base to proximal thighs. FINDINGS: SUV (standard uptake values) numbers given are maximum SUVs. QCLR used. No hypermetabolic lesions in the neck suspicious for metastatic disease. Anterior segment right upper lobe infiltrate-like broad lesion has contracted slightly since previous attenuation correction CT. This could represent post radiation pneumonitis, postobstructive pneumonitis, or pneumonia. Current SUV 3. Previous SUV 4. The previously demonstrated multiple liver metastases have decreased in size, and number. For example, the largest lesion, with greatest uptake in left lobe centered in hepatic segment 2 is c urrently much smaller, with current SUV of 7.8, prior SUV 16.2. Lesion at hepatic segment IVb current SUV 10.1, prior SUV 19.7. Apparent focus of intense uptake at inferior tip of right lobe of liver hepatic segment 6 is probably misregistration of activity arising from the hepatic flexure of the colon, SUV 12.0. There is probably no direct invasion of the liver. Left adrenal mass has decreased in size and has dramatically decreased uptake compared to prior: Current size is 3.1 x 1.7 cm. Current SUV 5.4. Previous size 4 x 2.7 cm. Previous SUV 18.8. Previous small hypermetabolic lesion at the body of the pancreas, abutting hepatogastric ligament, bethea s fallen just below threshold for hypermetabolic lesion. Current SUV 2.4. Previous SUV 7.5. Previous hypermetabolic stacy hepatis lymph node abutting the left edge of caudate lobe of liver is n o longer visible. Previous SUV 5.6. The multiple bilateral para-aortic retroperitoneal lymph nodes have essentially resolved. Some exampl es: Aortocaval node currently 0.7 x 0.7 cm with SUV 2.0 (not hypermetabolic). Previously 1.3 x 1.3 cm wit h SUV 10.2. Left para-aortic node currently 0.6 x 0.5 cm with current SUV 2.0 (not hypermetabolic). Previously 1. 3 x 1.4 cm with SUV of 12.0. No suspicious lesions in pelvic cavity. Previous lesion at left posterior body near pedicle of L5 with prior SUV of 5.1, is no longer hyperme tabolic (currently SUV 2.9, which is background bone marrow activity on this patient on current scan). IMPRESSION: 1) strong partial response to chemotherapy. 2) the metastatic hepatic lesions have decreased in number, uptake, and size. 3) the left adrenal metastatic nodule has improved. 4) the upper abdominal lymphadenopathy is no longer hypermetabolic. 5) the L5 osseous lesion is no longer hypermetabolic.
== END 2020-06-02 07:31 | disposition home or self-care (01) ==
LOC: PET 07:30
PROVIDERS: ATTEND Internal Medicine Hematology & Oncology
DX: C34.31 Malignant neoplasm of lower lobe, right bronchus or lung (principal); C78.7 Secondary malignant neoplasm of liver and intrahepatic bile duct; C79.72 Secondary malignant neoplasm of left adrenal gland; R59.0 Localized enlarged lymph nodes; M89.8X8 Other specified disorders of bone, other site
CPT/HCPCS: 78815; A9552